=== PATIENT | male | born 1940 | race Two or more races ===

== ENCOUNTER 2018-12-15 19:04 | Inpatient (IN) | payer MEDICARE, MEDICAID ==
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
[2018-12-15 21:26] LABS: % BASOPHILS 0.8 % (0.0-2.0); % EOSINOPHILS 3.7 % (0.0-5.0); % LYMPHOCYTES 30.7 % (20.0-50.0); % NEUTROPHILS 52.8 % (40.0-80.0); BASOPHILE ABSOLUTE 0.1 Th/cumm (0-0.2); EOSINOPHILE ABSOLUTE 0.3 Th/cmm (0.1-0.4); HEMATOCRIT 38.9 % (41.0-60); HEMOGLOBIN 13.4 gm/dL (12-16); LYMPHOCYTE ABSOLUTE 2.5 Th/cmm (1.5-3.0); MEAN CELL VOLUME 82.4 fl (80-99); MEAN CORPUSCULAR HEMOGLOBIN 28.3 pg (27.0-31.0); MEAN CORPUSCULAR HGB CONC 34.4 pg (28.0-36.0); NEUTROPHILE ABSOLUTE 4.1 Th/cmm (1.8-8.0); PLATELET COUNT 310 Th/cmm (150-400); RED BLOOD COUNT 4.72 Mil/cmm (3.80-5.80); RED CELL DISTRIBUTION WIDTH 12.1 % (11.5-20.0)
[2018-12-15 21:41] LABS: ALB/GLOB RATIO 1.4 (1.0-1.8); ALBUMIN 3.7 gm/dL (4.2-5.5); ALKALINE PHOSPHATASE 61 U/L (34-104); ANION GAP 14.2 (7.0-16.0); BILIRUBIN,TOTAL 0.5 mg/dL (0.3-1.0); BUN - UREA NITROGEN 17 mg/dL (7-25); CALCIUM SERUM 9.5 mg/dL (8.6-10.3); CARBON DIOXIDE 25.6 mEq/L (21.0-31.0); CHLORIDE 101 mEq/L (98-107); CHOLESTEROL 140 mg/dL (<200); CREATININE - SERUM 0.9 mg/dL (0.7-1.3); GLUCOSE 187 mg/dL (70-105); HDL -HIGH DENSITY LIPOPROTEIN 32 mg/dL (23-92); POTASSIUM SERUM 3.8 mEq/L (3.5-5.1); SGOT 10 U/L (13-39); SGPT/ALT 10 U/L (7-52); SODIUM SERUM 137 mEq/L (136-145); TOTAL PROTEIN,SERUM 6.3 gm/dL (6.0-8.3); TRIGLYCERIDES 215 mg/dL (<150)
[2018-12-15 23:59] VITALS: BP 121/56
[2018-12-16] MEDS ORDERED: Magnesium Hydroxide (MOM) 30 mL UDC PO PRN (12:24)
[2018-12-16] MEDS ORDERED: GLUCAGON HCl 1 MG KIT IM PRN (12:25)
[2018-12-16] MEDS ORDERED: Dextrose 50% 50 mL Abboject IVP PRN (12:25)
--- NOTE | 2018-12-16 16:05 | History & Physical ---
ADMIT DATE: 12/16/2018 INTERNAL MEDICINE HISTORY AND PHYSICAL REASON FOR CONSULTATION: Medical management and clearance. The patient was admitted to inpatient unit. HISTORY OF PRESENT ILLNESS: This is a 78-year-old middle aged male with a history of hypertension, diabetes, GERD, BPH, paroxysmal atrial fibrillation, Alzheimer dementia, high cholesterol, admitted from nursing facility secondary to agitated behavior under Dr. Suggs. The patient is not a good historian, confused, unable to provide any meaningful history and review of systems. PAST MEDICAL HISTORY: As mentioned in the history of present illness. PAST SURGICAL HISTORY: Unable to obtain with the patient. ALLERGIES: LEVAQUIN. MEDICATIONS: Tylenol, diltiazem, Lasix, Olmesartan, losartan, Ativan, potassium, Seroquel, ____, tamsulosin. FAMILY HISTORY: Noncontributory. SOCIAL HISTORY: The patient is a halfway patient requiring 24-hour total care. REVIEW OF SYSTEMS: This is limited secondary to pain, comatose state. We will try to obtain more detailed review of system at a later date by talking to other family members in ____ also try to get information from nursing facility, as well as from Dr. Suggs. PHYSICAL EXAMINATION: VITAL SIGNS: Blood pressure 148/67, respirations 20, pulse 54, and temperature 97.8. GENERAL: Elderly male, morbidly obese. NECK: Supple. No mass. LUNGS: Equal breath sounds, otherwise clear to auscultation. HEART: Irregularly regular with systolic ejection murmur. ABDOMEN: Soft, globular. EXTREMITIES: Positive excoriations. NEUROLOGIC: Limited. LABORATORY DATA: WBC 8, hemoglobin 13, platelets 310. Sodium 137, potassium 3.8, BUN 70, creatinine 0.9, blood sugar 187, AST and ALT 10 and 10, and triglyceride 250. ASSESSMENT AND PLAN: Anemia, diabetes, hypertension, gastroesophageal reflux disease, benign prostatic hypertrophy, paroxysmal atrial fibrillation, Alzheimer dementia, and hyperglycemia. Continue the patient on ADA diet and insulin sliding scale. Continue metformin. Continue current antihypertensive medication. We will place him on fall precautions. Continue with current care. We will continue to follow with the patient with youDr. Suggs. JOB# [id number]
[2018-12-16] MEDS: INSULIN LISPRO SLIDING SCALE 100 UNITS/ML UNIT SUBQ SCH ×2 (17:15→21:06)
[2018-12-16] MEDS ORDERED: Non-Formulary Item 1 EA (Melatonin [Melatonin] 10 MG) PO SCH (21:00)
[2018-12-16] MEDS: Atorvastatin Calcium 10 MG TAB PO SCH (21:05)
--- NOTE | 2018-12-17 00:50 | Psychiatric Evaluation ---
DATE OF SERVICE: 12/15/2018 CHIEF COMPLAINT: "I am fine." HISTORY OF PRESENT ILLNESS: The patient is a 78-year-old male with a history of dementia and psychosis, was sent from his custodial from [facility] for increased agitation, anger outburst, striking out at staff and others. The patient was interviewed today. The patient is a poor historian, forgetful and disorganized. PAST PSYCHIATRIC HISTORY: Dementia and psychosis. PAST MEDICAL HISTORY: As per H and P. Medical record was reviewed from [facility]. The patient with history of dementia and repeated falls. The patient with hypertension, BPH and diabetes. PSYCHOSOCIAL HISTORY: The patient resides at [facility], requires complete care. SUBSTANCE ABUSE HISTORY: Denied. MENTAL STATUS EXAMINATION: Speech, short sentences; occasional delayed responses. The patient appears to be paranoid, suspicious with surroundings. Memory, calculation, fund of knowledge is impaired. The patient thought he was 82 years old. Did not know where he was, but he is oriented to person. The patient's strength: The patient is accepting treatment. The patient's weakness: Lack of insight. ASSESSMENT: Psychosis, not otherwise specified; rule out major depressive disorder with psychosis; dementia; Alzheimer's type with behavior disturbances. MEDICAL: As per medical history. PLAN: We will admit the patient for hospitalization. We will start individual and group therapy, assess psychopharmacological intervention. ESTIMATED LENGTH OF STAY: 7 days. CRITERIA FOR DISCHARGE: Improved condition. Further stabilization, less anxiety. No aggressive behavior and safe disposition, outpatient treatment plan. [facility]# [id number]
[2018-12-17 06:04] LABS: A1C 7.5 % (4.8-5.6)
[2018-12-17] MEDS: INSULIN LISPRO SLIDING SCALE 100 UNITS/ML UNIT SUBQ SCH ×4 (06:34→21:25)
[2018-12-17] MEDS: Diltiazem CD 120 mg 24H PO SCH (08:28)
[2018-12-17] MEDS: Aspirin 81mg Chewable Tab PO SCH (08:29)
[2018-12-17] MEDS: Multivitamin Tab PO SCH (08:29)
[2018-12-17] MEDS: Potassium Chloride 10 mEq ER Tab PO SCH (08:30)
--- NOTE | 2018-12-17 11:56 | Internal Medicine Prog Note ---
Internal Medicine Subjective - Subjective Service Date: 12/17/18 Patient seen and examined:: with staff Patient is:: awake, verbal Per staff patient has:: tolerating meds Internal Medicine Objective - Results Result Diagrams: 12/15/18 21:00 12/15/18 21:00 Recent Labs: Laboratory Last Values WBC 8.0 Th/cmm (4.8-10.8) 12/15/18 21:00 RBC 4.72 Mil/cmm (3.80-5.80) 12/15/18 21:00 Hgb 13.4 gm/dL (12-16) 12/15/18 21:00 Hct 38.9 % (41.0-60) L 12/15/18 21:00 MCV 82.4 fl (80-99) 12/15/18 21:00 MCH 28.3 pg (27.0-31.0) 12/15/18 21:00 MCHC Differential 34.4 pg (28.0-36.0) 12/15/18 21:00 RDW 12.1 % (11.5-20.0) 12/15/18 21:00 Plt Count 310 Th/cmm (150-400) 12/15/18 21:00 MPV 7.5 fl 12/15/18 21:00 Neutrophils % 52.8 % (40.0-80.0) 12/15/18 21:00 Lymphocytes % 30.7 % (20.0-50.0) 12/15/18 21:00 Monocytes % 12.0 % (2.0-10.0) H 12/15/18 21:00 Eosinophils % 3.7 % (0.0-5.0) 12/15/18 21:00 Basophils % 0.8 % (0.0-2.0) 12/15/18 21:00 Sodium 137 mEq/L (136-145) 12/15/18 21:00 Potassium 3.8 mEq/L (3.5-5.1) 12/15/18 21:00 Chloride 101 mEq/L (98-107) 12/15/18 21:00 Carbon Dioxide 25.6 mEq/L (21.0-31.0) 12/15/18 21:00 Anion Gap 14.2 (7.0-16.0) 12/15/18 21:00 BUN 17 mg/dL (7-25) 12/15/18 21:00 Creatinine 0.9 mg/dL (0.7-1.3) 12/15/18 21:00 Est GFR ( Amer) TNP 12/15/18 21:00 Est GFR (Non-Af Amer) TNP 12/15/18 21:00 BUN/Creatinine Ratio 18.9 12/15/18 21:00 Glucose 187 mg/dL (70-105) H 12/15/18 21:00 Calcium 9.5 mg/dL (8.6-10.3) 12/15/18 21:00 Total Bilirubin 0.5 mg/dL (0.3-1.0) 12/15/18 21:00 AST 10 U/L (13-39) L 12/15/18 21:00 ALT 10 U/L (7-52) 12/15/18 21:00 Alkaline Phosphatase 61 U/L (34-104) 12/15/18 21:00 Troponin I 0.01 ng/mL (0.01-0.05) 12/15/18 21:00 Total Protein 6.3 gm/dL (6.0-8.3) 12/15/18 21:00 Albumin 3.7 gm/dL (4.2-5.5) L 12/15/18 21:00 Globulin 2.6 gm/dL 12/15/18 21:00 Albumin/Globulin Ratio 1.4 (1.0-1.8) 12/15/18 21:00 Triglycerides 215 mg/dL (<150) H 12/15/18 21:00 Cholesterol 140 mg/dL (<200) 12/15/18 21:00 LDL Cholesterol Direct 92 mg/dL (75-193) 12/15/18 21:00 HDL Cholesterol 32 mg/dL (23-92) 12/15/18 21:00 TSH 3.45 uIU/ml (0.34-5.60) 12/15/18 21:00 - Physical Exam Vitals and I&O: Vital Signs Temp 97.4 F 12/17/18 08:00 Pulse 60 12/17/18 08:28 Resp 18 12/17/18 08:00 BP 135/63 12/17/18 08:29 Pulse Ox 94 12/17/18 08:00 Intake & Output 12/16/18 12/17/18 12/17/18 18:59 06:59 18:59 Intake Total 1200 240 Balance 1200 240 Intake: Oral 1200 240 Other: # Voids 2 # Bowel Movements 1 Active Medications: Current Medications Acetaminophen (Tylenol) 650 mg PO Q6HR PRN PRN Reason: Pain or Fever >101 Stop: 02/14/19 12:23 Aspirin (Aspirin Chewable) 81 mg PO DAILY MARIANA Stop: 02/15/19 08:59 Last Admin: 12/17/18 08:29 Dose: 81 mg Atorvastatin Calcium (Lipitor) 10 mg PO HS MARIANA; Protocol Stop: 02/14/19 20:59 Last Admin: 12/16/18 21:05 Dose: 10 mg Bisacodyl (Dulcolax 10 Mg Supp) 10 mg RC DAILY PRN PRN Reason: Constipation Stop: 02/14/19 12:23 Dextrose (D50w) 50 ml IVP PRN PRN PRN Reason: Blood Glucose less than 70 Stop: 02/14/19 12:24 Dextrose (Glutose 40%) 18.75 gm PO PRN PRN PRN Reason: Blood Glucose less than 70 Stop: 02/14/19 12:24 Diltiazem HCl (Cardizem Cd) 240 mg PO DAILY MARIANA Stop: 02/15/19 08:59 Last Admin: 12/17/18 08:28 Dose: 240 mg Furosemide (Lasix) 20 mg PO BID MARIANA Stop: 02/14/19 16:59 Last Admin: 12/17/18 08:29 Dose: 20 mg Glucagon (Glucagen) 1 mg IM PRN PRN PRN Reason: Blood Glucose less than 70 Stop: 02/14/19 12:24 Insulin Human Lispro (Humalog Insulin Sliding Scale) 0 units SUBQ ACHS MARIANA; Protocol Stop: 02/14/19 16:29 Last Admin: 12/17/18 06:34 Dose: Not Given Lorazepam (Ativan) 0.5 mg PO Q4H PRN; Protocol PRN Reason: Anxiety Stop: 02/14/19 00:10 Last Admin: 12/16/18 17:16 Dose: 0.5 mg Losartan Potassium (Cozaar) 25 mg PO DAILY [facility] Stop: 02/15/19 08:59 Last Admin: 12/17/18 08:27 Dose: 25 mg Magnesium Hydroxide (Milk Of Magnesia) 30 ml PO DAILY PRN PRN Reason: Constipation Stop: 02/14/19 12:23 Metformin HCl (Glucophage) 500 mg PO BIDWM [facility] Stop: 02/14/19 17:59 Last Admin: 12/17/18 08:29 Dose: 500 mg Multivitamins/Vitamin C (Theragran) 1 tab PO DAILY [facility] Stop: 02/15/19 08:59 Last Admin: 12/17/18 08:29 Dose: 1 tab Potassium Chloride (Klor-Con) 10 meq PO DAILY [facility] Stop: 02/15/19 08:59 Last Admin: 12/17/18 08:30 Dose: 10 meq Quetiapine Fumarate (Seroquel) 25 mg PO BID [facility]; Protocol Stop: 02/14/19 08:59 Last Admin: 12/17/18 08:27 Dose: 25 mg Rivastigmine Tartrate (Exelon) 1.5 mg PO BIDWM [facility] Stop: 02/14/19 17:59 Last Admin: 12/17/18 08:27 Dose: 1.5 mg Tamsulosin HCl (Flomax) 0.4 mg PO DAILY [facility] Stop: 02/15/19 08:59 Last Admin: 12/17/18 08:29 Dose: 0.4 mg General: alert HEENT: NC/AT, PERRLA Neck: Supple Lungs: CTAB Cardiovascular: RRR, Normal S1, Normal S2 Abdomen: soft, non-tender, non-distended, positive bowel sound Extremities: excoriation Neurological: alert Internal Medicine Assmt/Plan - Assessment Assessment: anemia dm2 htn gerd bph paroxysmal afib alzheimer dementia - Plan Plan: continue ada diet fall precautions continue current plan of care Nutritional Asmnt/Malnutr-PDOC - Dietary Evaluation Malnutrition Findings (Please click <Entered> for more info): Nutritional Asmnt/Malnutrition Start: 12/16/18 08: 21 Text: Status: Active Freq: Protocol: Document 12/17/18 10:01 ELLE (Rec: 12/17/18 10:22 ELLE ARANDA- [email or web address]) Nutritional Asmnt/Malnutrition Patient General Information Nutritional Screening Moderate Risk Diagnosis Psychosis Pertinent Medical Hx/Surgical Hx HTN, Diabetes, GERD, BPH, paroxysomal atrial fibrillation, Alzheimer dementia, high cholesterol Subjective Information Patient was admitted from nursing facility for agitation . Patient with 1-2+ edema, on lasix. Per nursing notes, patient easily agitated, aggressive and unpredictable, sometimes striking, hitting and spitting. Current Diet Order/ Nutrition Support mechanical soft, 45gm CCHO, nectar thick liquids, chopped, no added sodium Patient / S.O Not Indicated Pertinent Medications Lipitor, dulcolax, D50W, Lasix , glucagon, humalog, cozaar, MOM, Metformin, Theragran, klor-con Pertinent Labs (12/15) Glucose 187, Albumin 3. 7, TAG 215 Nutritional Hx/Data Height 5 ft 7 in Height (Calculated Centimeters) 170.2 Current Weight (lbs) 185 lb Weight (Calculated Kilograms) 83.9 Weight (Calculated Grams) 20207.6 [place] Body Weight 148 % [place] Body Weight 125 Body Mass Index (BMI) 29.0 Recent Weight Change No Weight Status Overweight GI Symptoms GI Symptoms None Last BM 12/16 x 1 Difficult in: None Food Allergies No Cultural/Ethnic/Episcopal Belief none indicated Usual diet at home unknown Skin Integrity/Comment: Moses 16, bruises, intact Current %PO Good (75-100%) Estimated Nutritional Goals BEE in Kcals: Using Current wt Calories/Kcals/Kg 84kg 22-27 kcal/kg Kcals Calculated ~1125-1570 kcal/day Protein: Using Current wt Protein g/k.8-1 gm/kg Protein Calculated ~65-85 gm/day Fluid: ml ~1614-7897 ml/day Nutritional Problem No current Nutrition Prob Problem No nutrition diagnosis at this time Intervention/Recommendation Comments 1. Modify diet to 60 gm CCHO to better meet nutrient needs. Continue No added sodium due to edema. Continue mechanical soft, chopped diet with nectar thick liquids as appropriate. Expected Outcomes/Goals Expected Outcomes/Goals Adequate nutrition to meet >75 % estimated needs, improved labs, skin remains intact, weight maintenance or trend toward ideal body weight. F/U LR 12/24
--- NOTE | 2018-12-17 19:48 | Progress Notes ---
DATE: 12/17/2018 CHIEF COMPLAINT: "They keep me here." SUBJECTIVE: The patient was seen, remains anxious, still irritable, episodes of refusing care, refusing medications. 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 MENTAL STATUS EXAM: Speech is loud at times. Affect is dysphoric. The patient remains paranoid. Still responding to internal stimuli. Insight is still limited. ASSESSMENT: The patient is still agitated and forgetful. PLAN: Continue hospitalization, stabilization. Encourage the patient to comply with treatment. Continue current dose of Seroquel. JOB# [id number]
[2018-12-17] MEDS: Atorvastatin Calcium 10 MG TAB PO SCH (21:04)
[2018-12-18] MEDS: INSULIN LISPRO SLIDING SCALE 100 UNITS/ML UNIT SUBQ SCH ×4 (06:40→21:39)
[2018-12-18] MEDS: Aspirin 81mg Chewable Tab PO SCH (09:00)
[2018-12-18] MEDS: Potassium Chloride 10 mEq ER Tab PO SCH (09:00)
[2018-12-18] MEDS: Multivitamin Tab PO SCH (09:00)
[2018-12-18] MEDS: Diltiazem CD 120 mg 24H PO SCH (11:04)
--- NOTE | 2018-12-18 13:23 | Internal Medicine Prog Note ---
Internal Medicine Subjective - Subjective Service Date: 12/18/18 Patient is:: awake, verbal Per staff patient has:: tolerating meds Internal Medicine Objective - Results Result Diagrams: 12/15/18 21:00 12/15/18 21:00 Recent Labs: Laboratory Last Values WBC 8.0 Th/cmm (4.8-10.8) 12/15/18 21:00 RBC 4.72 Mil/cmm (3.80-5.80) 12/15/18 21:00 Hgb 13.4 gm/dL (12-16) 12/15/18 21:00 Hct 38.9 % (41.0-60) L 12/15/18 21:00 MCV 82.4 fl (80-99) 12/15/18 21:00 MCH 28.3 pg (27.0-31.0) 12/15/18 21:00 MCHC Differential 34.4 pg (28.0-36.0) 12/15/18 21:00 RDW 12.1 % (11.5-20.0) 12/15/18 21:00 Plt Count 310 Th/cmm (150-400) 12/15/18 21:00 MPV 7.5 fl 12/15/18 21:00 Neutrophils % 52.8 % (40.0-80.0) 12/15/18 21:00 Lymphocytes % 30.7 % (20.0-50.0) 12/15/18 21:00 Monocytes % 12.0 % (2.0-10.0) H 12/15/18 21:00 Eosinophils % 3.7 % (0.0-5.0) 12/15/18 21:00 Basophils % 0.8 % (0.0-2.0) 12/15/18 21:00 Sodium 137 mEq/L (136-145) 12/15/18 21:00 Potassium 3.8 mEq/L (3.5-5.1) 12/15/18 21:00 Chloride 101 mEq/L (98-107) 12/15/18 21:00 Carbon Dioxide 25.6 mEq/L (21.0-31.0) 12/15/18 21:00 Anion Gap 14.2 (7.0-16.0) 12/15/18 21:00 BUN 17 mg/dL (7-25) 12/15/18 21:00 Creatinine 0.9 mg/dL (0.7-1.3) 12/15/18 21:00 Est GFR ( Amer) TNP 12/15/18 21:00 Est GFR (Non-Af Amer) TNP 12/15/18 21:00 BUN/Creatinine Ratio 18.9 12/15/18 21:00 Glucose 187 mg/dL (70-105) H 12/15/18 21:00 Calcium 9.5 mg/dL (8.6-10.3) 12/15/18 21:00 Total Bilirubin 0.5 mg/dL (0.3-1.0) 12/15/18 21:00 AST 10 U/L (13-39) L 12/15/18 21:00 ALT 10 U/L (7-52) 12/15/18 21:00 Alkaline Phosphatase 61 U/L (34-104) 12/15/18 21:00 Troponin I 0.01 ng/mL (0.01-0.05) 12/15/18 21:00 Total Protein 6.3 gm/dL (6.0-8.3) 12/15/18 21:00 Albumin 3.7 gm/dL (4.2-5.5) L 12/15/18 21:00 Globulin 2.6 gm/dL 12/15/18 21:00 Albumin/Globulin Ratio 1.4 (1.0-1.8) 12/15/18 21:00 Triglycerides 215 mg/dL (<150) H 12/15/18 21:00 Cholesterol 140 mg/dL (<200) 12/15/18 21:00 LDL Cholesterol Direct 92 mg/dL (75-193) 12/15/18 21:00 HDL Cholesterol 32 mg/dL (23-92) 12/15/18 21:00 TSH 3.45 uIU/ml (0.34-5.60) 12/15/18 21:00 - Physical Exam Vitals and I&O: Vital Signs Temp 98.1 F 12/17/18 20:00 Pulse 75 12/18/18 11:04 Resp 18 12/17/18 20:00 BP 137/70 12/18/18 10:57 Pulse Ox 96 12/17/18 20:00 Intake & Output 07/12/18/18 12/18/18 18:59 06:59 18:59 Intake Total 850 600 Balance 850 600 Intake: Oral 850 600 Other: # Voids 4 2 # Bowel Movements 0 0 Active Medications: Current Medications Acetaminophen (Tylenol) 650 mg PO Q6HR PRN PRN Reason: Pain or Fever >101 Stop: 02/14/19 12:23 Aspirin (Aspirin Chewable) 81 mg PO DAILY [facility] Stop: 02/15/19 08:59 Last Admin: 12/18/18 09:00 Dose: 81 mg Atorvastatin Calcium (Lipitor) 10 mg PO HS [facility]; Protocol Stop: 02/14/19 20:59 Last Admin: 12/17/18 21:04 Dose: 10 mg Bisacodyl (Dulcolax 10 Mg Supp) 10 mg RC DAILY PRN PRN Reason: Constipation Stop: 02/14/19 12:23 Dextrose (D50w) 50 ml IVP PRN PRN PRN Reason: Blood Glucose less than 70 Stop: 02/14/19 12:24 Dextrose (Glutose 40%) 18.75 gm PO PRN PRN PRN Reason: Blood Glucose less than 70 Stop: 02/14/19 12:24 Diltiazem HCl (Cardizem Cd) 240 mg PO DAILY [facility] Stop: 02/15/19 08:59 Last Admin: 12/18/18 11:04 Dose: 240 mg Furosemide (Lasix) 20 mg PO BID [facility] Stop: 02/14/19 16:59 Last Admin: 12/18/18 10:57 Dose: 20 mg Glucagon (Glucagen) 1 mg IM PRN PRN PRN Reason: Blood Glucose less than 70 Stop: 02/14/19 12:24 Insulin Human Lispro (Humalog Insulin Sliding Scale) 0 units SUBQ ACHS [facility]; Protocol Stop: 02/14/19 16:29 Last Admin: 12/18/18 06:40 Dose: Not Given Lorazepam (Ativan) 0.5 mg PO Q4H PRN; Protocol PRN Reason: Anxiety Stop: 02/14/19 00:10 Last Admin: 12/18/18 09:00 Dose: 0.5 mg Losartan Potassium (Cozaar) 25 mg PO DAILY [facility] Stop: 02/15/19 08:59 Last Admin: 12/18/18 09:00 Dose: 25 mg Magnesium Hydroxide (Milk Of Magnesia) 30 ml PO DAILY PRN PRN Reason: Constipation Stop: 02/14/19 12:23 Metformin HCl (Glucophage) 500 mg PO BIDWM [facility] Stop: 02/14/19 17:59 Last Admin: 12/18/18 08:00 Dose: 500 mg Multivitamins/Vitamin C (Theragran) 1 tab PO DAILY [facility] Stop: 02/15/19 08:59 Last Admin: 12/18/18 09:00 Dose: 1 tab Potassium Chloride (Klor-Con) 10 meq PO DAILY [facility] Stop: 02/15/19 08:59 Last Admin: 12/18/18 09:00 Dose: 10 meq Quetiapine Fumarate (Seroquel) 25 mg PO BID [facility]; Protocol Stop: 02/14/19 08:59 Last Admin: 12/18/18 09:00 Dose: 25 mg Rivastigmine Tartrate (Exelon) 1.5 mg PO BIDWM [facility] Stop: 02/14/19 17:59 Last Admin: 12/18/18 11:02 Dose: Not Given Tamsulosin HCl (Flomax) 0.4 mg PO DAILY [facility] Stop: 02/15/19 08:59 Last Admin: 12/18/18 09:00 Dose: 0.4 mg General: alert HEENT: NC/AT, PERRLA Neck: Supple Lungs: CTAB Cardiovascular: RRR, Normal S1, Normal S2 Abdomen: soft, non-tender, non-distended, positive bowel sound Extremities: excoriation Neurological: alert Internal Medicine Assmt/Plan - Assessment Assessment: anemia dm2 htn gerd bph paroxysmal afib alzheimer dementia - Plan Plan: continue ada diet fall precautions continue current plan of care Nutritional Asmnt/Malnutr-PDOC - Dietary Evaluation Malnutrition Findings (Please click <Entered> for more info): Nutritional Asmnt/Malnutrition Start: 12/16/18 08: 21 Text: Status: Complete Freq: Protocol: Document 12/17/18 10:01 ELLE (Rec: 12/17/18 10:22 ELLE ARANDA- [email or web address]) Nutritional Asmnt/Malnutrition Patient General Information Nutritional Screening Moderate Risk Diagnosis Psychosis Pertinent Medical Hx/Surgical Hx HTN, Diabetes, GERD, BPH, paroxysomal atrial fibrillation, Alzheimer dementia, high cholesterol Subjective Information Patient was admitted from nursing facility for agitation . Patient with 1-2+ edema, on lasix. Per nursing notes, patient easily agitated, aggressive and unpredictable, sometimes striking, hitting and spitting. Patient was seen in Radha chair in dining room at time of visit. Per GRINDING MACHINE OPERATOR, he [id number]% of meals without difficulty. Current Diet Order/ Nutrition Support mechanical soft, 45gm CCHO, nectar thick liquids, chopped, no added sodium Patient / S.O Not Indicated Pertinent Medications Lipitor, dulcolax, D50W, Lasix , glucagon, humalog, cozaar, MOM, Metformin, Theragran, klor-con Pertinent Labs (12/15) Glucose 187, Albumin 3. 7, TAG 215 Nutritional Hx/Data Height 5 ft 7 in Height (Calculated Centimeters) 170.2 Current Weight (lbs) 185 lb Weight (Calculated Kilograms) 83.9 Weight (Calculated Grams) 99985.6 [place] Body Weight 148 % [place] Body Weight 125 Body Mass Index (BMI) 29.0 Recent Weight Change No Weight Status Overweight GI Symptoms GI Symptoms None Last BM 12/16 x 1 Difficult in: None Food Allergies No Cultural/Ethnic/Presybeterian Belief none indicated Usual diet at home unknown Skin Integrity/Comment: Moses 16, bruises, intact Current %PO Good (75-100%) Estimated Nutritional Goals BEE in Kcals: Using Current wt Calories/Kcals/Kg 84kg 22-27 kcal/kg Kcals Calculated ~0468-5923 kcal/day Protein: Using Current wt Protein g/k.8-1 gm/kg Protein Calculated ~65-85 gm/day Fluid: ml ~3382-9763 ml/day Nutritional Problem No current Nutrition Prob Problem No nutrition diagnosis at this time Intervention/Recommendation Comments 1. Modify diet to 60 gm CCHO to better meet nutrient needs. Continue No added sodium due to edema. Continue mechanical soft, chopped diet with nectar thick liquids as appropriate. Expected Outcomes/Goals Expected Outcomes/Goals Adequate nutrition to meet >75 % estimated needs, improved labs, skin remains intact, weight maintenance or trend toward ideal body weight. F/U LR 12/24
--- NOTE | 2018-12-18 18:54 | Consultation ---
DATE OF CONSULTATION: 12/17/2018 REFERRING PHYSICIAN: Roberto Morris M.D. TYPE OF CONSULTATION: Psychology. HISTORY OF PRESENT ILLNESS: The patient is a 78-year-old male. The patient is a resident of [facility]. The patient is being admitted for increased agitation as well as anger outbursts and striking out at staff. The following is by record review and by the patient's self report. The patient presents as a poor historian. The patient denied any suicidal ideation, plan or intention at the time of his clinical interview. PAST MEDICAL HISTORY: Please see history and physical by Dr. Moore PAST PSYCHIATRIC HISTORY: Record review indicates a history of dementia and psychosis. It is unknown whether the patient has had previous psychiatric hospitalizations. The patient stated he is under the care of a psychiatrist at his facility. SUBSTANCE ABUSE HISTORY: The patient denied any history of alcohol, tobacco or illicit drug use. PSYCHOSOCIAL HISTORY: The patient states that he is and that he has 1 son who is involved in his care. The patient states his primary sikh is Mu-Ism and that he is devout. The patient did not answer questions about occupational or educational history. The patient did not answer questions about history of physical or sexual abuse or any current legal problems. MENTAL STATUS EXAMINATION: The patient appears to be his stated age. The patient's attitude is guarded and suspicious. Eye contact is poor. Speech is slow and delayed. Mood seems anxious. Affect is mood congruent. Thought process shows some confusion with poor fund of knowledge. The patient denied any hallucinations or delusions. The patient denies any suicidal ideation, plan or intention. There is possible paranoid ideation. The patient's behavior has been redirectable on the unit. The patient is denying aggressive behavior. Impulse control is inadequate. Concentration is poor. Sensorium is alert and oriented to self only. The patient did not participate in the memory assessment. When asked to repeat 3 items immediately, the patient was unable to do so. The patient did not participate in the interpretation of proverbs. Insight is poor. Judgment is impaired. DIAGNOSTIC IMPRESSION: AXIS I: 1. Psychotic disorder, not otherwise specified. 2. History of dementia, Alzheimer's type with behavioral disturbance. AXIS II: Deferred. AXIS III: Per Dr. Moore. TREATMENT PLAN: The patient has been seen by Dr. Morris for psychiatric evaluation and for the management of the patient's psychotropic medications. We will provide individual, supportive psychotherapy to include reality orientation, differentiation and integration. We will provide motivational enhancement for the patient to become compliant and stay compliant with all aspects of his care and treatment. We will provide limit setting as well as de-escalation. We will encourage the patient to demonstrate emotional and self-regulation by verbalizing his concerns versus acting out. We will provide simple anger management skills. We will provide coping strategies for phase of life issues. We will encourage the patient on a daily basis to verbally contract for safety, i.e. no harm to others and no self-harm. Thank you, Dr. Morris for this consult and the opportunity to participate in this patient's care. [facility]# [id number] JASPREET
[2018-12-18] MEDS: Atorvastatin Calcium 10 MG TAB PO SCH (20:37)
[2018-12-19] MEDS: INSULIN LISPRO SLIDING SCALE 100 UNITS/ML UNIT SUBQ SCH ×4 (07:00→20:44)
[2018-12-19] MEDS: Aspirin 81mg Chewable Tab PO SCH (08:58)
[2018-12-19] MEDS: Potassium Chloride 10 mEq ER Tab PO SCH (08:58)
[2018-12-19] MEDS: Multivitamin Tab PO SCH (08:59)
[2018-12-19] MEDS: Diltiazem CD 120 mg 24H PO SCH (09:00)
--- NOTE | 2018-12-19 12:08 | Internal Medicine Prog Note ---
Internal Medicine Subjective - Subjective Patient seen and examined:: with staff, chart reviewed Patient is:: awake, verbal, interactive Per staff patient has:: no adverse event, no episodes of fall, poor appetite, tolerating meds Internal Medicine Objective - Results Result Diagrams: 12/15/18 21:00 12/15/18 21:00 Recent Labs: Laboratory Last Values WBC 8.0 Th/cmm (4.8-10.8) 12/15/18 21:00 RBC 4.72 Mil/cmm (3.80-5.80) 12/15/18 21:00 Hgb 13.4 gm/dL (12-16) 12/15/18 21:00 Hct 38.9 % (41.0-60) L 12/15/18 21:00 MCV 82.4 fl (80-99) 12/15/18 21:00 MCH 28.3 pg (27.0-31.0) 12/15/18 21:00 MCHC Differential 34.4 pg (28.0-36.0) 12/15/18 21:00 RDW 12.1 % (11.5-20.0) 12/15/18 21:00 Plt Count 310 Th/cmm (150-400) 12/15/18 21:00 MPV 7.5 fl 12/15/18 21:00 Neutrophils % 52.8 % (40.0-80.0) 12/15/18 21:00 Lymphocytes % 30.7 % (20.0-50.0) 12/15/18 21:00 Monocytes % 12.0 % (2.0-10.0) H 12/15/18 21:00 Eosinophils % 3.7 % (0.0-5.0) 12/15/18 21:00 Basophils % 0.8 % (0.0-2.0) 12/15/18 21:00 Sodium 137 mEq/L (136-145) 12/15/18 21:00 Potassium 3.8 mEq/L (3.5-5.1) 12/15/18 21:00 Chloride 101 mEq/L (98-107) 12/15/18 21:00 Carbon Dioxide 25.6 mEq/L (21.0-31.0) 12/15/18 21:00 Anion Gap 14.2 (7.0-16.0) 12/15/18 21:00 BUN 17 mg/dL (7-25) 12/15/18 21:00 Creatinine 0.9 mg/dL (0.7-1.3) 12/15/18 21:00 Est GFR ( Amer) TNP 12/15/18 21:00 Est GFR (Non-Af Amer) TNP 12/15/18 21:00 BUN/Creatinine Ratio 18.9 12/15/18 21:00 Glucose 187 mg/dL (70-105) H 12/15/18 21:00 Calcium 9.5 mg/dL (8.6-10.3) 12/15/18 21:00 Total Bilirubin 0.5 mg/dL (0.3-1.0) 12/15/18 21:00 AST 10 U/L (13-39) L 12/15/18 21:00 ALT 10 U/L (7-52) 12/15/18 21:00 Alkaline Phosphatase 61 U/L (34-104) 12/15/18 21:00 Troponin I 0.01 ng/mL (0.01-0.05) 12/15/18 21:00 Total Protein 6.3 gm/dL (6.0-8.3) 12/15/18 21:00 Albumin 3.7 gm/dL (4.2-5.5) L 12/15/18 21:00 Globulin 2.6 gm/dL 12/15/18 21:00 Albumin/Globulin Ratio 1.4 (1.0-1.8) 12/15/18 21:00 Triglycerides 215 mg/dL (<150) H 12/15/18 21:00 Cholesterol 140 mg/dL (<200) 12/15/18 21:00 LDL Cholesterol Direct 92 mg/dL (75-193) 12/15/18 21:00 HDL Cholesterol 32 mg/dL (23-92) 12/15/18 21:00 TSH 3.45 uIU/ml (0.34-5.60) 12/15/18 21:00 - Physical Exam Vitals and I&O: Vital Signs Temp 97.2 F 12/19/18 05:54 Pulse 83 12/19/18 09:00 Resp 18 12/19/18 05:54 BP 162/66 12/19/18 08:59 Pulse Ox 97 12/19/18 05:54 Intake & Output 12/18/18 12/19/18 12/19/18 18:59 06:59 18:59 Intake Total 980 240 Balance 980 240 Intake: Oral 740 240 Other 240 Other: # Voids 3 2 # Bowel Movements 1 Active Medications: Current Medications Acetaminophen (Tylenol) 650 mg PO Q6HR PRN PRN Reason: Pain or Fever >101 Stop: 02/14/19 12:23 Aspirin (Aspirin Chewable) 81 mg PO DAILY [facility] Stop: 02/15/19 08:59 Last Admin: 12/19/18 08:58 Dose: Not Given Atorvastatin Calcium (Lipitor) 10 mg PO HS [facility]; Protocol Stop: 02/14/19 20:59 Last Admin: 12/18/18 20:37 Dose: 10 mg Bisacodyl (Dulcolax 10 Mg Supp) 10 mg RC DAILY PRN PRN Reason: Constipation Stop: 02/14/19 12:23 Dextrose (Glutose 40%) 18.75 gm PO PRN PRN PRN Reason: BS Below 70 & tolerate po Stop: 02/14/19 12:24 Diltiazem HCl (Cardizem Cd) 240 mg PO DAILY [facility] Stop: 02/15/19 08:59 Last Admin: 12/19/18 09:00 Dose: 240 mg Furosemide (Lasix) 20 mg PO BID [facility] Stop: 02/14/19 16:59 Last Admin: 12/19/18 08:59 Dose: 20 mg Glucagon (Glucagen) 1 mg IM PRN PRN PRN Reason: BS Below 70 & not tolerate po Stop: 02/14/19 12:24 Insulin Human Lispro (Humalog Insulin Sliding Scale) 0 units SUBQ ACHS [facility]; Protocol Stop: 02/14/19 16:29 Last Admin: 12/19/18 07:00 Dose: 2 units Lorazepam (Ativan) 0.5 mg PO Q4H PRN; Protocol PRN Reason: Anxiety Stop: 02/14/19 00:10 Last Admin: 12/18/18 09:00 Dose: 0.5 mg Losartan Potassium (Cozaar) 25 mg PO DAILY [facility] Stop: 02/15/19 08:59 Last Admin: 12/19/18 08:59 Dose: 25 mg Magnesium Hydroxide (Milk Of Magnesia) 30 ml PO DAILY PRN PRN Reason: Constipation Stop: 02/14/19 12:23 Metformin HCl (Glucophage) 500 mg PO BIDWM [facility] Stop: 02/14/19 17:59 Last Admin: 12/19/18 09:00 Dose: 500 mg Multivitamins/Vitamin C (Theragran) 1 tab PO DAILY [facility] Stop: 02/15/19 08:59 Last Admin: 12/19/18 08:59 Dose: 1 tab Potassium Chloride (Klor-Con) 10 meq PO DAILY [facility] Stop: 02/15/19 08:59 Last Admin: 12/19/18 08:58 Dose: 10 meq Quetiapine Fumarate (Seroquel) 25 mg PO BID [facility]; Protocol Stop: 02/14/19 08:59 Last Admin: 12/19/18 09:00 Dose: 25 mg Rivastigmine Tartrate (Exelon) 1.5 mg PO BIDWM [facility] Stop: 02/14/19 17:59 Last Admin: 12/19/18 08:58 Dose: 1.5 mg Tamsulosin HCl (Flomax) 0.4 mg PO DAILY [facility] Stop: 02/15/19 08:59 Last Admin: 12/19/18 08:58 Dose: 0.4 mg General: alert, obese HEENT: NC/AT, PERRLA Neck: Supple Lungs: CTAB Cardiovascular: RRR, Normal S1, Normal S2 Abdomen: soft, non-tender, non-distended, positive bowel sound Extremities: excoriation, contracture Neurological: disorganized Internal Medicine Assmt/Plan - Assessment Assessment: ASSESSMENT AND PLAN: Anemia, diabetes, hypertension, gastroesophageal reflux disease, benign prostatic hypertrophy, paroxysmal atrial fibrillation, Alzheimer dementia, and hyperglycemia. - Plan Plan: PLAN: Continue the patient on ADA diet and insulin sliding scale. Continue metformin. Continue current antihypertensive medication. We will place him on fall precautions. Continue with current care. We will continue to follow with the patient with youDr. Suggs. Nutritional Asmnt/Malnutr-PDOC - Dietary Evaluation Malnutrition Findings (Please click <Entered> for more info): Nutritional Asmnt/Malnutrition Start: 12/16/18 08: 21 Text: Status: Complete Freq: Protocol: Document 12/17/18 10:01 ELLE (Rec: 12/17/18 10:22 ELLE ARANDA- [email or web address]) Nutritional Asmnt/Malnutrition Patient General Information Nutritional Screening Moderate Risk Diagnosis Psychosis Pertinent Medical Hx/Surgical Hx HTN, Diabetes, GERD, BPH, paroxysomal atrial fibrillation, Alzheimer dementia, high cholesterol Subjective Information Patient was admitted from nursing facility for agitation . Patient with 1-2+ edema, on lasix. Per nursing notes, patient easily agitated, aggressive and unpredictable, sometimes striking, hitting and spitting. Patient was seen in Radha chair in dining room at time of visit. Per DRESSING ROOM PORTER, he [id number]% of meals without difficulty. Current Diet Order/ Nutrition Support mechanical soft, 45gm CCHO, nectar thick liquids, chopped, no added sodium Patient / S.O Not Indicated Pertinent Medications Lipitor, dulcolax, D50W, Lasix , glucagon, humalog, cozaar, MOM, Metformin, Theragran, klor-con Pertinent Labs (12/15) Glucose 187, Albumin 3. 7, TAG 215 Nutritional Hx/Data Height 1.7 m Height (Calculated Centimeters) 170.2 Current Weight (lbs) 83.915 kg Weight (Calculated Kilograms) 83.9 Weight (Calculated Grams) 52792.6 [place] Body Weight 148 % [place] Body Weight 125 Body Mass Index (BMI) 29.0 Recent Weight Change No Weight Status Overweight GI Symptoms GI Symptoms None Last BM 12/16 x 1 Difficult in: None Food Allergies No Cultural/Ethnic/Anabaptism Belief none indicated Usual diet at home unknown Skin Integrity/Comment: Moses 16, bruises, intact Current %PO Good (75-100%) Estimated Nutritional Goals BEE in Kcals: Using Current wt Calories/Kcals/Kg 84kg 22-27 kcal/kg Kcals Calculated ~4303-0075 kcal/day Protein: Using Current wt Protein g/k.8-1 gm/kg Protein Calculated ~65-85 gm/day Fluid: ml ~6542-9086 ml/day Nutritional Problem No current Nutrition Prob Problem No nutrition diagnosis at this time Intervention/Recommendation Comments 1. Modify diet to 60 gm CCHO to better meet nutrient needs. Continue No added sodium due to edema. Continue mechanical soft, chopped diet with nectar thick liquids as appropriate. Expected Outcomes/Goals Expected Outcomes/Goals Adequate nutrition to meet >75 % estimated needs, improved labs, skin remains intact, weight maintenance or trend toward ideal body weight. F/U LR 12/24
--- NOTE | 2018-12-19 12:17 | Progress Notes ---
DATE: 12/18/2018 SUBJECTIVE: The patient was seen. Continues to have episode of anger, irritability, some episodes of refusing care. The patient is however sleeping fairly well and appetite is fair. P.o. intake is fair. ASSESSMENT: The patient is still anxious, confused and paranoid. PLAN: Continue hospitalization and encourage the patient to comply with treatment. The patient on Seroquel 25 mg p.o. b.i.d. JOB# [id number]
[2018-12-19] MEDS: Atorvastatin Calcium 10 MG TAB PO SCH (20:15)
--- NOTE | 2018-12-19 23:23 | Progress Notes ---
DATE: 12/19/2018 PSYCHOLOGY PROGRESS NOTE SUBJECTIVE: The patient is seen and is interviewed. Case is discussed with staff. Staff reports the patient continues to have anger episodes and is easily irritated. The staff reports the patient has been refusing care. The patient seems quite confused and disoriented this visit. OBJECTIVE: Mood is irritable. Affect is constricted. Thought process shows to be confused. The patient denied any auditory or visual hallucinations; however, paranoid delusion is present. The patient's behavior has been difficult to redirect as well as refusing care. ASSESSMENT AND PLAN: The patient's confusion and paranoia and anxiety persist. We provided a simple anxiety reduction scale. We provided de-escalation and encouraged the patient to demonstrate emotional and self-regulation by verbalizing his concerns versus acting out. We provided remotivation for the patient to become compliant with his care and treatment. We provided coping strategies for phase of life issues as well. We provided reality orientation and integration. We will follow up in 2 days to continue the present treatment if the patient remains admitted on the unit. JOB# [id number] JASPREET
--- NOTE | 2018-12-20 03:10 | Progress Notes ---
DATE: 12/19/2018 SUBJECTIVE: Staff was spoken to. The patient is interviewed. Mood is noted to be irritable. Affect is constricted. The patient has paranoia, but denies any command hallucinations. The patient has been having difficult time to get adjusted to the unit and has been getting easily irritable and angry. The patient is going to be continued on the Seroquel that is being given at 25 mg twice a day and is going to be followed up with the supportive therapy. ASSESSMENT: The patient is still psychotic and impulsive. PLAN: To continue the patient with the supportive therapy and followup. JOB# [id number]
[2018-12-20] MEDS: INSULIN LISPRO SLIDING SCALE 100 UNITS/ML UNIT SUBQ SCH ×4 (07:00→20:56)
[2018-12-20] MEDS: Diltiazem CD 120 mg 24H PO SCH (09:01)
[2018-12-20] MEDS: Aspirin 81mg Chewable Tab PO SCH (09:02)
[2018-12-20] MEDS: Multivitamin Tab PO SCH (09:03)
[2018-12-20] MEDS: Potassium Chloride 10 mEq ER Tab PO SCH (09:03)
--- NOTE | 2018-12-20 11:59 | Internal Medicine Prog Note ---
Internal Medicine Subjective - Subjective Patient seen and examined:: with staff, chart reviewed Patient is:: awake, verbal, interactive Per staff patient has:: no adverse event, no episodes of fall, poor appetite, tolerating meds Internal Medicine Objective - Results Result Diagrams: 12/15/18 21:00 12/15/18 21:00 Recent Labs: Laboratory Last Values WBC 8.0 Th/cmm (4.8-10.8) 12/15/18 21:00 RBC 4.72 Mil/cmm (3.80-5.80) 12/15/18 21:00 Hgb 13.4 gm/dL (12-16) 12/15/18 21:00 Hct 38.9 % (41.0-60) L 12/15/18 21:00 MCV 82.4 fl (80-99) 12/15/18 21:00 MCH 28.3 pg (27.0-31.0) 12/15/18 21:00 MCHC Differential 34.4 pg (28.0-36.0) 12/15/18 21:00 RDW 12.1 % (11.5-20.0) 12/15/18 21:00 Plt Count 310 Th/cmm (150-400) 12/15/18 21:00 MPV 7.5 fl 12/15/18 21:00 Neutrophils % 52.8 % (40.0-80.0) 12/15/18 21:00 Lymphocytes % 30.7 % (20.0-50.0) 12/15/18 21:00 Monocytes % 12.0 % (2.0-10.0) H 12/15/18 21:00 Eosinophils % 3.7 % (0.0-5.0) 12/15/18 21:00 Basophils % 0.8 % (0.0-2.0) 12/15/18 21:00 Sodium 137 mEq/L (136-145) 12/15/18 21:00 Potassium 3.8 mEq/L (3.5-5.1) 12/15/18 21:00 Chloride 101 mEq/L (98-107) 12/15/18 21:00 Carbon Dioxide 25.6 mEq/L (21.0-31.0) 12/15/18 21:00 Anion Gap 14.2 (7.0-16.0) 12/15/18 21:00 BUN 17 mg/dL (7-25) 12/15/18 21:00 Creatinine 0.9 mg/dL (0.7-1.3) 12/15/18 21:00 Est GFR ( Amer) TNP 12/15/18 21:00 Est GFR (Non-Af Amer) TNP 12/15/18 21:00 BUN/Creatinine Ratio 18.9 12/15/18 21:00 Glucose 187 mg/dL (70-105) H 12/15/18 21:00 Calcium 9.5 mg/dL (8.6-10.3) 12/15/18 21:00 Total Bilirubin 0.5 mg/dL (0.3-1.0) 12/15/18 21:00 AST 10 U/L (13-39) L 12/15/18 21:00 ALT 10 U/L (7-52) 12/15/18 21:00 Alkaline Phosphatase 61 U/L (34-104) 12/15/18 21:00 Troponin I 0.01 ng/mL (0.01-0.05) 12/15/18 21:00 Total Protein 6.3 gm/dL (6.0-8.3) 12/15/18 21:00 Albumin 3.7 gm/dL (4.2-5.5) L 12/15/18 21:00 Globulin 2.6 gm/dL 12/15/18 21:00 Albumin/Globulin Ratio 1.4 (1.0-1.8) 12/15/18 21:00 Triglycerides 215 mg/dL (<150) H 12/15/18 21:00 Cholesterol 140 mg/dL (<200) 12/15/18 21:00 LDL Cholesterol Direct 92 mg/dL (75-193) 12/15/18 21:00 HDL Cholesterol 32 mg/dL (23-92) 12/15/18 21:00 TSH 3.45 uIU/ml (0.34-5.60) 12/15/18 21:00 RPR NONREACTIVE (NONREACTIVE) 12/15/18 21:00 - Physical Exam Vitals and I&O: Vital Signs Temp 98.1 F 12/20/18 05:51 Pulse 74 12/20/18 09:02 Resp 19 12/20/18 05:51 BP 134/67 07/23/19 09:02 Pulse Ox 96 12/20/18 05:51 Intake & Output 12/19/18 12/20/18 12/20/18 18:59 06:59 18:59 Intake Total 850 180 Balance 850 180 Intake: Oral 850 180 Other: # Voids 3 1 # Bowel Movements 1 0 Active Medications: Current Medications Acetaminophen (Tylenol) 650 mg PO Q6HR PRN PRN Reason: Pain or Fever >101 Stop: 02/14/19 12:23 Last Admin: 12/19/18 20:15 Dose: 650 mg Aspirin (Aspirin Chewable) 81 mg PO DAILY [facility] Stop: 02/15/19 08:59 Last Admin: 12/20/18 09:02 Dose: 81 mg Atorvastatin Calcium (Lipitor) 10 mg PO HS [facility]; Protocol Stop: 02/14/19 20:59 Last Admin: 12/19/18 20:15 Dose: 10 mg Bisacodyl (Dulcolax 10 Mg Supp) 10 mg RC DAILY PRN PRN Reason: Constipation Stop: 02/14/19 12:23 Dextrose (Glutose 40%) 18.75 gm PO PRN PRN PRN Reason: BS Below 70 & tolerate po Stop: 02/14/19 12:24 Diltiazem HCl (Cardizem Cd) 240 mg PO DAILY [facility] Stop: 02/15/19 08:59 Last Admin: 12/20/18 09:01 Dose: Not Given Furosemide (Lasix) 20 mg PO BID [facility] Stop: 02/14/19 16:59 Last Admin: 12/20/18 09:01 Dose: 20 mg Glucagon (Glucagen) 1 mg IM PRN PRN PRN Reason: BS Below 70 & not tolerate po Stop: 02/14/19 12:24 Insulin Human Lispro (Humalog Insulin Sliding Scale) 0 units SUBQ ACHS [facility]; Protocol Stop: 02/14/19 16:29 Last Admin: 12/19/18 20:44 Dose: Not Given Lorazepam (Ativan) 0.5 mg PO Q4H PRN; Protocol PRN Reason: Anxiety Stop: 02/14/19 00:10 Last Admin: 12/18/18 09:00 Dose: 0.5 mg Losartan Potassium (Cozaar) 25 mg PO DAILY [facility] Stop: 02/15/19 08:59 Last Admin: 12/20/18 09:02 Dose: 25 mg Magnesium Hydroxide (Milk Of Magnesia) 30 ml PO DAILY PRN PRN Reason: Constipation Stop: 02/14/19 12:23 Metformin HCl (Glucophage) 500 mg PO BIDWM [facility] Stop: 02/14/19 17:59 Last Admin: 12/20/18 09:00 Dose: 500 mg Multivitamins/Vitamin C (Theragran) 1 tab PO DAILY [facility] Stop: 02/15/19 08:59 Last Admin: 12/20/18 09:03 Dose: 1 tab Potassium Chloride (Klor-Con) 10 meq PO DAILY [facility] Stop: 02/15/19 08:59 Last Admin: 12/20/18 09:03 Dose: 10 meq Quetiapine Fumarate (Seroquel) 25 mg PO BID [facility]; Protocol Stop: 02/14/19 08:59 Last Admin: 12/20/18 09:00 Dose: 25 mg Rivastigmine Tartrate (Exelon) 1.5 mg PO BIDWM [facility] Stop: 02/14/19 17:59 Last Admin: 12/20/18 08:59 Dose: 1.5 mg Tamsulosin HCl (Flomax) 0.4 mg PO DAILY [facility] Stop: 02/15/19 08:59 Last Admin: 12/20/18 09:00 Dose: 0.4 mg General: alert, obese HEENT: NC/AT, PERRLA Neck: Supple Lungs: CTAB Cardiovascular: RRR, Normal S1, Normal S2 Abdomen: soft, non-tender, non-distended, positive bowel sound Extremities: excoriation, contracture Neurological: disorganized Internal Medicine Assmt/Plan - Assessment Assessment: ASSESSMENT AND PLAN: Anemia, diabetes, hypertension, gastroesophageal reflux disease, benign prostatic hypertrophy, paroxysmal atrial fibrillation, Alzheimer dementia, and hyperglycemia. - Plan Plan: PLAN: Continue the patient on ADA diet and insulin sliding scale. Continue metformin. Continue current antihypertensive medication. We will place him on fall precautions. Continue with current care. We will continue to follow with the patient with Dr. Ifeanyi to. Nutritional Asmnt/Malnutr-PDOC - Dietary Evaluation Malnutrition Findings (Please click <Entered> for more info): Nutritional Asmnt/Malnutrition Start: 12/16/18 08: 21 Text: Status: Complete Freq: Protocol: Document 12/17/18 10:01 ELLE (Rec: 12/17/18 10:22 ELLE ROSI- [email or web address]) Nutritional Asmnt/Malnutrition Patient General Information Nutritional Screening Moderate Risk Diagnosis Psychosis Pertinent Medical Hx/Surgical Hx HTN, Diabetes, GERD, BPH, paroxysomal atrial fibrillation, Alzheimer dementia, high cholesterol Subjective Information Patient was admitted from nursing facility for agitation . Patient with 1-2+ edema, on lasix. Per nursing notes, patient easily agitated, aggressive and unpredictable, sometimes striking, hitting and spitting. Patient was seen in Radha chair in dining room at time of visit. 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 Current Diet Order/ Nutrition Support mechanical soft, 45gm CCHO, nectar thick liquids, chopped, no added sodium Patient / S.O Not Indicated Pertinent Medications Lipitor, dulcolax, D50W, Lasix , glucagon, humalog, cozaar, MOM, Metformin, Theragran, klor-con Pertinent Labs (12/15) Glucose 187, Albumin 3. 7, TAG 215 Nutritional Hx/Data Height 1.7 m Height (Calculated Centimeters) 170.2 Current Weight (lbs) 83.915 kg Weight (Calculated Kilograms) 83.9 Weight (Calculated Grams) 44438.6 [place] Body Weight 148 % [place] Body Weight 125 Body Mass Index (BMI) 29.0 Recent Weight Change No Weight Status Overweight GI Symptoms GI Symptoms None Last BM 12/16 x 1 Difficult in: None Food Allergies No Cultural/Ethnic/Catholic Belief none indicated Usual diet at home unknown Skin Integrity/Comment: Moses 16, bruises, intact Current %PO Good (75-100%) Estimated Nutritional Goals BEE in Kcals: Using Current wt Calories/Kcals/Kg 84kg 22-27 kcal/kg Kcals Calculated ~4606-7558 kcal/day Protein: Using Current wt Protein g/k.8-1 gm/kg Protein Calculated ~65-85 gm/day Fluid: ml ~0174-5739 ml/day Nutritional Problem No current Nutrition Prob Problem No nutrition diagnosis at this time Intervention/Recommendation Comments 1. Modify diet to 60 gm CCHO to better meet nutrient needs. Continue No added sodium due to edema. Continue mechanical soft, chopped diet with nectar thick liquids as appropriate. Expected Outcomes/Goals Expected Outcomes/Goals Adequate nutrition to meet >75 % estimated needs, improved labs, skin remains intact, weight maintenance or trend toward ideal body weight. F/U LR 12/24
[2018-12-20] MEDS: Atorvastatin Calcium 10 MG TAB PO SCH (20:41)
[2018-12-21] MEDS: INSULIN LISPRO SLIDING SCALE 100 UNITS/ML UNIT SUBQ SCH ×4 (08:00→20:44)
[2018-12-21] MEDS: Aspirin 81mg Chewable Tab PO SCH (09:00)
[2018-12-21] MEDS: Multivitamin Tab PO SCH (09:00)
[2018-12-21] MEDS: Diltiazem CD 120 mg 24H PO SCH (09:36)
[2018-12-21] MEDS: Potassium Chloride 10 mEq ER Tab PO SCH (09:39)
--- NOTE | 2018-12-21 10:30 | Progress Notes ---
DATE: 12/20/2018 PSYCHIATRIC PROGRESS NOTE SUBJECTIVE: Staff was spoken to. The patient is interviewed. Mood is noted to be less irritable. The patient is isolative and withdrawn. The patient is bedbound at this time. No major behavioral problems are reported today. The patient is currently on 25 mg of the Seroquel and has been able to tolerate the medication. No side effects to the medications are noted. ASSESSMENT: The patient's impulsivity is coming under control. PLAN: To continue the patient with supportive therapy. I encouraged the patient to verbalize the concerns rather than to act out. JOB# [id number]
--- NOTE | 2018-12-21 12:12 | Internal Medicine Prog Note ---
Internal Medicine Subjective - Subjective Patient seen and examined:: with staff, chart reviewed Patient is:: awake, verbal, interactive Per staff patient has:: no adverse event, no episodes of fall, poor appetite, tolerating meds Internal Medicine Objective - Results Result Diagrams: 12/15/18 21:00 12/15/18 21:00 Recent Labs: Laboratory Last Values WBC 8.0 Th/cmm (4.8-10.8) 12/15/18 21:00 RBC 4.72 Mil/cmm (3.80-5.80) 12/15/18 21:00 Hgb 13.4 gm/dL (12-16) 12/15/18 21:00 Hct 38.9 % (41.0-60) L 12/15/18 21:00 MCV 82.4 fl (80-99) 12/15/18 21:00 MCH 28.3 pg (27.0-31.0) 12/15/18 21:00 MCHC Differential 34.4 pg (28.0-36.0) 12/15/18 21:00 RDW 12.1 % (11.5-20.0) 12/15/18 21:00 Plt Count 310 Th/cmm (150-400) 12/15/18 21:00 MPV 7.5 fl 12/15/18 21:00 Neutrophils % 52.8 % (40.0-80.0) 12/15/18 21:00 Lymphocytes % 30.7 % (20.0-50.0) 12/15/18 21:00 Monocytes % 12.0 % (2.0-10.0) H 12/15/18 21:00 Eosinophils % 3.7 % (0.0-5.0) 12/15/18 21:00 Basophils % 0.8 % (0.0-2.0) 12/15/18 21:00 Sodium 137 mEq/L (136-145) 12/15/18 21:00 Potassium 3.8 mEq/L (3.5-5.1) 12/15/18 21:00 Chloride 101 mEq/L (98-107) 12/15/18 21:00 Carbon Dioxide 25.6 mEq/L (21.0-31.0) 12/15/18 21:00 Anion Gap 14.2 (7.0-16.0) 12/15/18 21:00 BUN 17 mg/dL (7-25) 12/15/18 21:00 Creatinine 0.9 mg/dL (0.7-1.3) 12/15/18 21:00 Est GFR ( Amer) TNP 12/15/18 21:00 Est GFR (Non-Af Amer) TNP 12/15/18 21:00 BUN/Creatinine Ratio 18.9 12/15/18 21:00 Glucose 187 mg/dL (70-105) H 12/15/18 21:00 Calcium 9.5 mg/dL (8.6-10.3) 12/15/18 21:00 Total Bilirubin 0.5 mg/dL (0.3-1.0) 12/15/18 21:00 AST 10 U/L (13-39) L 12/15/18 21:00 ALT 10 U/L (7-52) 12/15/18 21:00 Alkaline Phosphatase 61 U/L (34-104) 12/15/18 21:00 Troponin I 0.01 ng/mL (0.01-0.05) 12/15/18 21:00 Total Protein 6.3 gm/dL (6.0-8.3) 12/15/18 21:00 Albumin 3.7 gm/dL (4.2-5.5) L 12/15/18 21:00 Globulin 2.6 gm/dL 12/15/18 21:00 Albumin/Globulin Ratio 1.4 (1.0-1.8) 12/15/18 21:00 Triglycerides 215 mg/dL (<150) H 12/15/18 21:00 Cholesterol 140 mg/dL (<200) 12/15/18 21:00 LDL Cholesterol Direct 92 mg/dL (75-193) 12/15/18 21:00 HDL Cholesterol 32 mg/dL (23-92) 12/15/18 21:00 TSH 3.45 uIU/ml (0.34-5.60) 12/15/18 21:00 RPR NONREACTIVE (NONREACTIVE) 12/15/18 21:00 - Physical Exam Vitals and I&O: Vital Signs Temp 98.2 F 12/20/18 20:40 Pulse 74 12/21/18 09:36 Resp 20 12/20/18 20:40 BP 142/73 07/24/19 09:00 Pulse Ox 97 12/20/18 20:40 Intake & Output 12/20/18 12/21/18 12/21/18 18:59 06:59 18:59 Intake Total 120 Balance 120 Intake: Oral 120 Other: # Voids 3 2 # Bowel Movements 1 0 Active Medications: Current Medications Acetaminophen (Tylenol) 650 mg PO Q6HR PRN PRN Reason: Pain or Fever >101 Stop: 02/14/19 12:23 Last Admin: 12/19/18 20:15 Dose: 650 mg Aspirin (Aspirin Chewable) 81 mg PO DAILY [facility] Stop: 02/15/19 08:59 Last Admin: 12/21/18 09:00 Dose: 81 mg Atorvastatin Calcium (Lipitor) 10 mg PO HS [facility]; Protocol Stop: 02/14/19 20:59 Last Admin: 12/20/18 20:41 Dose: 10 mg Bisacodyl (Dulcolax 10 Mg Supp) 10 mg RC DAILY PRN PRN Reason: Constipation Stop: 02/14/19 12:23 Dextrose (Glutose 40%) 18.75 gm PO PRN PRN PRN Reason: BS Below 70 & tolerate po Stop: 02/14/19 12:24 Diltiazem HCl (Cardizem Cd) 240 mg PO DAILY [facility] Stop: 02/15/19 08:59 Last Admin: 12/21/18 09:36 Dose: 240 mg Furosemide (Lasix) 20 mg PO BID [facility] Stop: 02/14/19 16:59 Last Admin: 12/21/18 09:00 Dose: 20 mg Glucagon (Glucagen) 1 mg IM PRN PRN PRN Reason: BS Below 70 & not tolerate po Stop: 02/14/19 12:24 Insulin Human Lispro (Humalog Insulin Sliding Scale) 0 units SUBQ ACHS [facility]; Protocol Stop: 02/14/19 16:29 Last Admin: 12/20/18 20:56 Dose: 4 units Lorazepam (Ativan) 0.5 mg PO Q4H PRN; Protocol PRN Reason: Anxiety Stop: 02/14/19 00:10 Last Admin: 12/18/18 09:00 Dose: 0.5 mg Losartan Potassium (Cozaar) 25 mg PO DAILY [facility] Stop: 02/15/19 08:59 Last Admin: 12/21/18 09:00 Dose: 25 mg Magnesium Hydroxide (Milk Of Magnesia) 30 ml PO DAILY PRN PRN Reason: Constipation Stop: 02/14/19 12:23 Metformin HCl (Glucophage) 500 mg PO BIDWM [facility] Stop: 02/14/19 17:59 Last Admin: 12/21/18 09:00 Dose: 500 mg Multivitamins/Vitamin C (Theragran) 1 tab PO DAILY [facility] Stop: 02/15/19 08:59 Last Admin: 12/21/18 09:00 Dose: 1 tab Potassium Chloride (Klor-Con) 10 meq PO DAILY [facility] Stop: 02/15/19 08:59 Last Admin: 12/21/18 09:39 Dose: 10 meq Quetiapine Fumarate (Seroquel) 25 mg PO BID [facility]; Protocol Stop: 02/14/19 08:59 Last Admin: 12/21/18 09:00 Dose: 25 mg Rivastigmine Tartrate (Exelon) 1.5 mg PO BIDWM [facility] Stop: 02/14/19 17:59 Last Admin: 12/21/18 09:00 Dose: 1.5 mg Tamsulosin HCl (Flomax) 0.4 mg PO DAILY [facility] Stop: 02/15/19 08:59 Last Admin: 12/21/18 09:00 Dose: 0.4 mg General: alert, obese HEENT: NC/AT, PERRLA Neck: Supple Lungs: CTAB Cardiovascular: RRR, Normal S1, Normal S2 Abdomen: soft, non-tender, non-distended, positive bowel sound Extremities: excoriation, contracture Neurological: disorganized Internal Medicine Assmt/Plan - Assessment Assessment: ASSESSMENT AND PLAN: Anemia, diabetes, hypertension, gastroesophageal reflux disease, benign prostatic hypertrophy, paroxysmal atrial fibrillation, Alzheimer dementia, and hyperglycemia. - Plan Plan: PLAN: Continue the patient on ADA diet and insulin sliding scale. Continue metformin. Continue current antihypertensive medication. We will place him on fall precautions. Continue with current care. We will continue to follow with the patient with Dr. Ifeanyi to. Nutritional Asmnt/Malnutr-PDOC - Dietary Evaluation Malnutrition Findings (Please click <Entered> for more info): Nutritional Asmnt/Malnutrition Start: 12/16/18 08: 21 Text: Status: Complete Freq: Protocol: Document 12/17/18 10:01 ELLE (Rec: 12/17/18 10:22 ELLE ROSI- [email or web address]) Nutritional Asmnt/Malnutrition Patient General Information Nutritional Screening Moderate Risk Diagnosis Psychosis Pertinent Medical Hx/Surgical Hx HTN, Diabetes, GERD, BPH, paroxysomal atrial fibrillation, Alzheimer dementia, high cholesterol Subjective Information Patient was admitted from nursing facility for agitation . Patient with 1-2+ edema, on lasix. Per nursing notes, patient easily agitated, aggressive and unpredictable, sometimes striking, hitting and spitting. Patient was seen in Radha chair in dining room at time of visit. 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 Current Diet Order/ Nutrition Support mechanical soft, 45gm CCHO, nectar thick liquids, chopped, no added sodium Patient / S.O Not Indicated Pertinent Medications Lipitor, dulcolax, D50W, Lasix , glucagon, humalog, cozaar, MOM, Metformin, Theragran, klor-con Pertinent Labs (12/15) Glucose 187, Albumin 3. 7, TAG 215 Nutritional Hx/Data Height 1.7 m Height (Calculated Centimeters) 170.2 Current Weight (lbs) 83.915 kg Weight (Calculated Kilograms) 83.9 Weight (Calculated Grams) 59092.6 [place] Body Weight 148 % [place] Body Weight 125 Body Mass Index (BMI) 29.0 Recent Weight Change No Weight Status Overweight GI Symptoms GI Symptoms None Last BM 12/16 x 1 Difficult in: None Food Allergies No Cultural/Ethnic/Voodoo Belief none indicated Usual diet at home unknown Skin Integrity/Comment: Moses 16, bruises, intact Current %PO Good (75-100%) Estimated Nutritional Goals BEE in Kcals: Using Current wt Calories/Kcals/Kg 84kg 22-27 kcal/kg Kcals Calculated ~9561-5733 kcal/day Protein: Using Current wt Protein g/k.8-1 gm/kg Protein Calculated ~65-85 gm/day Fluid: ml ~4540-2181 ml/day Nutritional Problem No current Nutrition Prob Problem No nutrition diagnosis at this time Intervention/Recommendation Comments 1. Modify diet to 60 gm CCHO to better meet nutrient needs. Continue No added sodium due to edema. Continue mechanical soft, chopped diet with nectar thick liquids as appropriate. Expected Outcomes/Goals Expected Outcomes/Goals Adequate nutrition to meet >75 % estimated needs, improved labs, skin remains intact, weight maintenance or trend toward ideal body weight. F/U LR 12/24
[2018-12-21] MEDS: Atorvastatin Calcium 10 MG TAB PO SCH (20:44)
--- NOTE | 2018-12-21 22:18 | Progress Notes ---
DATE: 12/21/2018 PSYCHOLOGY PROGRESS NOTE SUBJECTIVE: The patient is seen and is interviewed. Case is discussed with staff. The patient presents as less irritable this visit; however, the patient continues to be isolative and withdrawn. Staff reports the patient has not had any major behavioral problems in the last 24-48 hours. The patient states that he feels he is ready to discharge. OBJECTIVE: Mood is less irritable. Affect is constricted. Thought process shows to be confused. The patient denied any hallucinations or delusions. The patient has been taking his p.o. medications. Impulse control seems to be improving. ASSESSMENT AND PLAN: Impulsivity is coming under control. We provided remotivation for the patient to stay compliant with his care and to demonstrate emotional and self-regulation by verbalizing his concerns versus acting out. We provided coping strategies for phase of life issues. We will follow up in 2 days to continue the present treatment if the patient remains admitted on the unit. JOB# [id number] JASPREET
--- NOTE | 2018-12-22 03:13 | Progress Notes ---
DATE: 12/21/2018 SUBJECTIVE: Staff was spoken to. The patient is interviewed. Mood is noted to be less irritable. The patient is isolative and withdrawn. The patient has been reluctant to get out of the bed. The patient is not presenting with any major behavioral problems today. The patient is reported to be compliant with the medication. No aggressive behavior is reported today. ASSESSMENT: The patient's psychosis is resolving. No agitated behavior is noted. Since the patient has been too groggy, it is decided to change the Seroquel to 25 mg only at night time and follow the patient with the supportive therapy. JOB# [id number]
[2018-12-22] MEDS: INSULIN LISPRO SLIDING SCALE 100 UNITS/ML UNIT SUBQ SCH ×4 (06:34→21:50)
[2018-12-22] MEDS: Diltiazem CD 120 mg 24H PO SCH (09:40)
[2018-12-22] MEDS: Aspirin 81mg Chewable Tab PO SCH (09:40)
[2018-12-22] MEDS: Potassium Chloride 10 mEq ER Tab PO SCH (09:41)
[2018-12-22] MEDS: Multivitamin Tab PO SCH (09:41)
--- NOTE | 2018-12-22 12:44 | Progress Notes ---
DATE: 12/22/2018 SUBJECTIVE: Staff was spoken to. The patient is interviewed. Mood is noted to be less irritable. Affect is appropriate. The patient is isolative and withdrawn. The patient is currently on 25 mg of the Seroquel at night time and has been able to tolerate the medications. No side effects to medications are noted. Sleep is noted to be improving. Appetite is noted to be fair, but the patient is complaining of being tired all the time. ASSESSMENT: The patient is still demented and impulsivity is a problem. PLAN: To continue the patient with the current medications. I encouraged the patient to verbalize the concerns rather than to act out. JOB# [id number]
--- NOTE | 2018-12-22 13:04 | Internal Medicine Prog Note ---
Internal Medicine Subjective - Subjective Patient seen and examined:: with staff, chart reviewed Patient is:: awake, verbal, interactive Per staff patient has:: no adverse event, no episodes of fall, poor appetite, tolerating meds Internal Medicine Objective - Results Result Diagrams: 12/15/18 21:00 12/15/18 21:00 Recent Labs: Laboratory Last Values WBC 8.0 Th/cmm (4.8-10.8) 12/15/18 21:00 RBC 4.72 Mil/cmm (3.80-5.80) 12/15/18 21:00 Hgb 13.4 gm/dL (12-16) 12/15/18 21:00 Hct 38.9 % (41.0-60) L 12/15/18 21:00 MCV 82.4 fl (80-99) 12/15/18 21:00 MCH 28.3 pg (27.0-31.0) 12/15/18 21:00 MCHC Differential 34.4 pg (28.0-36.0) 12/15/18 21:00 RDW 12.1 % (11.5-20.0) 12/15/18 21:00 Plt Count 310 Th/cmm (150-400) 12/15/18 21:00 MPV 7.5 fl 12/15/18 21:00 Neutrophils % 52.8 % (40.0-80.0) 12/15/18 21:00 Lymphocytes % 30.7 % (20.0-50.0) 12/15/18 21:00 Monocytes % 12.0 % (2.0-10.0) H 12/15/18 21:00 Eosinophils % 3.7 % (0.0-5.0) 12/15/18 21:00 Basophils % 0.8 % (0.0-2.0) 12/15/18 21:00 Sodium 137 mEq/L (136-145) 12/15/18 21:00 Potassium 3.8 mEq/L (3.5-5.1) 12/15/18 21:00 Chloride 101 mEq/L (98-107) 12/15/18 21:00 Carbon Dioxide 25.6 mEq/L (21.0-31.0) 12/15/18 21:00 Anion Gap 14.2 (7.0-16.0) 12/15/18 21:00 BUN 17 mg/dL (7-25) 12/15/18 21:00 Creatinine 0.9 mg/dL (0.7-1.3) 12/15/18 21:00 Est GFR ( Amer) TNP 12/15/18 21:00 Est GFR (Non-Af Amer) TNP 12/15/18 21:00 BUN/Creatinine Ratio 18.9 12/15/18 21:00 Glucose 187 mg/dL (70-105) H 12/15/18 21:00 Calcium 9.5 mg/dL (8.6-10.3) 12/15/18 21:00 Total Bilirubin 0.5 mg/dL (0.3-1.0) 12/15/18 21:00 AST 10 U/L (13-39) L 12/15/18 21:00 ALT 10 U/L (7-52) 12/15/18 21:00 Alkaline Phosphatase 61 U/L (34-104) 12/15/18 21:00 Troponin I 0.01 ng/mL (0.01-0.05) 12/15/18 21:00 Total Protein 6.3 gm/dL (6.0-8.3) 12/15/18 21:00 Albumin 3.7 gm/dL (4.2-5.5) L 12/15/18 21:00 Globulin 2.6 gm/dL 12/15/18 21:00 Albumin/Globulin Ratio 1.4 (1.0-1.8) 12/15/18 21:00 Triglycerides 215 mg/dL (<150) H 12/15/18 21:00 Cholesterol 140 mg/dL (<200) 12/15/18 21:00 LDL Cholesterol Direct 92 mg/dL (75-193) 12/15/18 21:00 HDL Cholesterol 32 mg/dL (23-92) 12/15/18 21:00 TSH 3.45 uIU/ml (0.34-5.60) 12/15/18 21:00 RPR NONREACTIVE (NONREACTIVE) 12/15/18 21:00 - Physical Exam Vitals and I&O: Vital Signs Temp 97.6 F 12/22/18 06:06 Pulse 70 12/22/18 06:06 Resp 18 12/22/18 06:06 BP 131/69 07/25/19 06:06 Pulse Ox 95 12/22/18 06:06 Intake & Output 12/21/18 12/22/18 12/22/18 18:59 06:59 18:59 Intake Total 120 Balance 120 Intake: Oral 120 Other: # Voids 3 # Bowel Movements 0 Active Medications: Current Medications Acetaminophen (Tylenol) 650 mg PO Q6HR PRN PRN Reason: Pain or Fever >101 Stop: 02/14/19 12:23 Last Admin: 12/19/18 20:15 Dose: 650 mg Aspirin (Aspirin Chewable) 81 mg PO DAILY [facility] Stop: 02/15/19 08:59 Last Admin: 12/22/18 09:40 Dose: Not Given Atorvastatin Calcium (Lipitor) 10 mg PO HS [facility]; Protocol Stop: 02/14/19 20:59 Last Admin: 12/21/18 20:44 Dose: 10 mg Bisacodyl (Dulcolax 10 Mg Supp) 10 mg RC DAILY PRN PRN Reason: Constipation Stop: 02/14/19 12:23 Dextrose (Glutose 40%) 18.75 gm PO PRN PRN PRN Reason: BS Below 70 & tolerate po Stop: 02/14/19 12:24 Diltiazem HCl (Cardizem Cd) 240 mg PO DAILY [facility] Stop: 02/15/19 08:59 Last Admin: 12/22/18 09:40 Dose: Not Given Furosemide (Lasix) 20 mg PO BID [facility] Stop: 02/14/19 16:59 Last Admin: 12/22/18 09:41 Dose: Not Given Glucagon (Glucagen) 1 mg IM PRN PRN PRN Reason: BS Below 70 & not tolerate po Stop: 02/14/19 12:24 Insulin Human Lispro (Humalog Insulin Sliding Scale) 0 units SUBQ ACHS [facility]; Protocol Stop: 02/14/19 16:29 Last Admin: 12/22/18 11:39 Dose: Not Given Lorazepam (Ativan) 0.5 mg PO Q4H PRN; Protocol PRN Reason: Anxiety Stop: 02/14/19 00:10 Last Admin: 12/18/18 09:00 Dose: 0.5 mg Losartan Potassium (Cozaar) 25 mg PO DAILY [facility] Stop: 02/15/19 08:59 Last Admin: 12/22/18 09:41 Dose: Not Given Magnesium Hydroxide (Milk Of Magnesia) 30 ml PO DAILY PRN PRN Reason: Constipation Stop: 02/14/19 12:23 Metformin HCl (Glucophage) 500 mg PO BIDWM [facility] Stop: 02/14/19 17:59 Last Admin: 12/22/18 09:40 Dose: Not Given Multivitamins/Vitamin C (Theragran) 1 tab PO DAILY [facility] Stop: 02/15/19 08:59 Last Admin: 12/22/18 09:41 Dose: Not Given Potassium Chloride (Klor-Con) 10 meq PO DAILY [facility] Stop: 02/15/19 08:59 Last Admin: 12/22/18 09:41 Dose: Not Given Quetiapine Fumarate (Seroquel) 25 mg PO HS [facility]; Protocol Stop: 02/19/19 20:59 Rivastigmine Tartrate (Exelon) 1.5 mg PO BIDWM [facility] Stop: 02/14/19 17:59 Last Admin: 12/22/18 09:40 Dose: Not Given Tamsulosin HCl (Flomax) 0.4 mg PO DAILY [facility] Stop: 02/15/19 08:59 Last Admin: 12/22/18 09:41 Dose: Not Given General: alert, obese HEENT: NC/AT, PERRLA Neck: Supple Lungs: CTAB Cardiovascular: RRR, Normal S1, Normal S2 Abdomen: soft, non-tender, non-distended, positive bowel sound Extremities: excoriation, contracture Neurological: disorganized Internal Medicine Assmt/Plan - Assessment Assessment: ASSESSMENT AND PLAN: Anemia, diabetes, hypertension, gastroesophageal reflux disease, benign prostatic hypertrophy, paroxysmal atrial fibrillation, Alzheimer dementia, and hyperglycemia. - Plan Plan: PLAN: Continue the patient on ADA diet and insulin sliding scale. Continue metformin. Continue current antihypertensive medication. We will place him on fall precautions. Continue with current care. We will continue to follow with the patient with youDr. Suggs. Nutritional Asmnt/Malnutr-PDOC - Dietary Evaluation Malnutrition Findings (Please click <Entered> for more info): Nutritional Asmnt/Malnutrition Start: 12/16/18 08: 21 Text: Status: Complete Freq: Protocol: Document 12/17/18 10:01 ELLE (Rec: 12/17/18 10:22 ELLE ARANDA- [email or web address]) Nutritional Asmnt/Malnutrition Patient General Information Nutritional Screening Moderate Risk Diagnosis Psychosis Pertinent Medical Hx/Surgical Hx HTN, Diabetes, GERD, BPH, paroxysomal atrial fibrillation, Alzheimer dementia, high cholesterol Subjective Information Patient was admitted from nursing facility for agitation . Patient with 1-2+ edema, on lasix. Per nursing notes, patient easily agitated, aggressive and unpredictable, sometimes striking, hitting and spitting. Patient was seen in Radha chair in dining room at time of visit. Per WAVE SOLDER OFFBEARER, he [id number]% of meals without difficulty. Current Diet Order/ Nutrition Support mechanical soft, 45gm CCHO, nectar thick liquids, chopped, no added sodium Patient / S.O Not Indicated Pertinent Medications Lipitor, dulcolax, D50W, Lasix , glucagon, humalog, cozaar, MOM, Metformin, Theragran, klor-con Pertinent Labs (12/15) Glucose 187, Albumin 3. 7, TAG 215 Nutritional Hx/Data Height 1.7 m Height (Calculated Centimeters) 170.2 Current Weight (lbs) 83.915 kg Weight (Calculated Kilograms) 83.9 Weight (Calculated Grams) 71143.6 [place] Body Weight 148 % [place] Body Weight 125 Body Mass Index (BMI) 29.0 Recent Weight Change No Weight Status Overweight GI Symptoms GI Symptoms None Last BM 12/16 x 1 Difficult in: None Food Allergies No Cultural/Ethnic/Restorationist Belief none indicated Usual diet at home unknown Skin Integrity/Comment: Moses 16, bruises, intact Current %PO Good (75-100%) Estimated Nutritional Goals BEE in Kcals: Using Current wt Calories/Kcals/Kg 84kg 22-27 kcal/kg Kcals Calculated ~8037-7530 kcal/day Protein: Using Current wt Protein g/k.8-1 gm/kg Protein Calculated ~65-85 gm/day Fluid: ml ~9488-3341 ml/day Nutritional Problem No current Nutrition Prob Problem No nutrition diagnosis at this time Intervention/Recommendation Comments 1. Modify diet to 60 gm CCHO to better meet nutrient needs. Continue No added sodium due to edema. Continue mechanical soft, chopped diet with nectar thick liquids as appropriate. Expected Outcomes/Goals Expected Outcomes/Goals Adequate nutrition to meet >75 % estimated needs, improved labs, skin remains intact, weight maintenance or trend toward ideal body weight. F/U LR 12/24
[2018-12-22] MEDS: Atorvastatin Calcium 10 MG TAB PO SCH (21:33)
[2018-12-23] MEDS: INSULIN LISPRO SLIDING SCALE 100 UNITS/ML UNIT SUBQ SCH ×4 (06:41→21:20)
[2018-12-23] MEDS: Potassium Chloride 10 mEq ER Tab PO SCH (08:54)
[2018-12-23] MEDS: Diltiazem CD 120 mg 24H PO SCH (08:54)
[2018-12-23] MEDS: Aspirin 81mg Chewable Tab PO SCH (08:54)
[2018-12-23] MEDS: Multivitamin Tab PO SCH (08:56)
--- NOTE | 2018-12-23 13:25 | Internal Medicine Prog Note ---
Internal Medicine Subjective - Subjective Patient seen and examined:: with staff, chart reviewed Patient is:: awake, verbal, interactive Per staff patient has:: no adverse event, no episodes of fall, poor appetite, tolerating meds Internal Medicine Objective - Results Result Diagrams: 12/15/18 21:00 12/15/18 21:00 Recent Labs: Laboratory Last Values WBC 8.0 Th/cmm (4.8-10.8) 12/15/18 21:00 RBC 4.72 Mil/cmm (3.80-5.80) 12/15/18 21:00 Hgb 13.4 gm/dL (12-16) 12/15/18 21:00 Hct 38.9 % (41.0-60) L 12/15/18 21:00 MCV 82.4 fl (80-99) 12/15/18 21:00 MCH 28.3 pg (27.0-31.0) 12/15/18 21:00 MCHC Differential 34.4 pg (28.0-36.0) 12/15/18 21:00 RDW 12.1 % (11.5-20.0) 12/15/18 21:00 Plt Count 310 Th/cmm (150-400) 12/15/18 21:00 MPV 7.5 fl 12/15/18 21:00 Neutrophils % 52.8 % (40.0-80.0) 12/15/18 21:00 Lymphocytes % 30.7 % (20.0-50.0) 12/15/18 21:00 Monocytes % 12.0 % (2.0-10.0) H 12/15/18 21:00 Eosinophils % 3.7 % (0.0-5.0) 12/15/18 21:00 Basophils % 0.8 % (0.0-2.0) 12/15/18 21:00 Sodium 137 mEq/L (136-145) 12/15/18 21:00 Potassium 3.8 mEq/L (3.5-5.1) 12/15/18 21:00 Chloride 101 mEq/L (98-107) 12/15/18 21:00 Carbon Dioxide 25.6 mEq/L (21.0-31.0) 12/15/18 21:00 Anion Gap 14.2 (7.0-16.0) 12/15/18 21:00 BUN 17 mg/dL (7-25) 12/15/18 21:00 Creatinine 0.9 mg/dL (0.7-1.3) 12/15/18 21:00 Est GFR ( Amer) TNP 12/15/18 21:00 Est GFR (Non-Af Amer) TNP 12/15/18 21:00 BUN/Creatinine Ratio 18.9 12/15/18 21:00 Glucose 187 mg/dL (70-105) H 12/15/18 21:00 Calcium 9.5 mg/dL (8.6-10.3) 12/15/18 21:00 Total Bilirubin 0.5 mg/dL (0.3-1.0) 12/15/18 21:00 AST 10 U/L (13-39) L 12/15/18 21:00 ALT 10 U/L (7-52) 12/15/18 21:00 Alkaline Phosphatase 61 U/L (34-104) 12/15/18 21:00 Troponin I 0.01 ng/mL (0.01-0.05) 12/15/18 21:00 Total Protein 6.3 gm/dL (6.0-8.3) 12/15/18 21:00 Albumin 3.7 gm/dL (4.2-5.5) L 12/15/18 21:00 Globulin 2.6 gm/dL 12/15/18 21:00 Albumin/Globulin Ratio 1.4 (1.0-1.8) 12/15/18 21:00 Triglycerides 215 mg/dL (<150) H 12/15/18 21:00 Cholesterol 140 mg/dL (<200) 12/15/18 21:00 LDL Cholesterol Direct 92 mg/dL (75-193) 12/15/18 21:00 HDL Cholesterol 32 mg/dL (23-92) 12/15/18 21:00 TSH 3.45 uIU/ml (0.34-5.60) 12/15/18 21:00 RPR NONREACTIVE (NONREACTIVE) 12/15/18 21:00 - Physical Exam Vitals and I&O: Vital Signs Temp 98.0 F 12/23/18 06:12 Pulse 73 12/23/18 08:54 Resp 20 12/23/18 06:12 BP 152/90 07/26/19 08:53 Pulse Ox 97 12/23/18 06:12 Intake & Output 12/22/18 12/23/18 12/23/18 18:59 06:59 18:59 Intake Total 700 240 Balance 700 240 Intake: Oral 460 240 Other 240 Other: # Voids 3 2 # Bowel Movements 1 0 Active Medications: Current Medications Acetaminophen (Tylenol) 650 mg PO Q6HR PRN PRN Reason: Pain or Fever >101 Stop: 02/14/19 12:23 Last Admin: 12/19/18 20:15 Dose: 650 mg Aspirin (Aspirin Chewable) 81 mg PO DAILY [facility] Stop: 02/15/19 08:59 Last Admin: 12/23/18 08:54 Dose: 81 mg Atorvastatin Calcium (Lipitor) 10 mg PO HS [facility]; Protocol Stop: 02/14/19 20:59 Last Admin: 12/22/18 21:33 Dose: 10 mg Bisacodyl (Dulcolax 10 Mg Supp) 10 mg RC DAILY PRN PRN Reason: Constipation Stop: 02/14/19 12:23 Dextrose (Glutose 40%) 18.75 gm PO PRN PRN PRN Reason: BS Below 70 & tolerate po Stop: 02/14/19 12:24 Diltiazem HCl (Cardizem Cd) 240 mg PO DAILY [facility] Stop: 02/15/19 08:59 Last Admin: 12/23/18 08:54 Dose: 240 mg Furosemide (Lasix) 20 mg PO BID [facility] Stop: 02/14/19 16:59 Last Admin: 12/23/18 08:52 Dose: 20 mg Glucagon (Glucagen) 1 mg IM PRN PRN PRN Reason: BS Below 70 & not tolerate po Stop: 02/14/19 12:24 Insulin Human Lispro (Humalog Insulin Sliding Scale) 0 units SUBQ ACHS [facility]; Protocol Stop: 02/14/19 16:29 Last Admin: 12/23/18 06:41 Dose: Not Given Lorazepam (Ativan) 0.5 mg PO Q4H PRN; Protocol PRN Reason: Anxiety Stop: 02/14/19 00:10 Last Admin: 12/18/18 09:00 Dose: 0.5 mg Losartan Potassium (Cozaar) 25 mg PO DAILY [facility] Stop: 02/15/19 08:59 Last Admin: 12/23/18 08:53 Dose: 25 mg Magnesium Hydroxide (Milk Of Magnesia) 30 ml PO DAILY PRN PRN Reason: Constipation Stop: 02/14/19 12:23 Metformin HCl (Glucophage) 500 mg PO BIDWM [facility] Stop: 02/14/19 17:59 Last Admin: 12/23/18 08:53 Dose: 500 mg Multivitamins/Vitamin C (Theragran) 1 tab PO DAILY [facility] Stop: 02/15/19 08:59 Last Admin: 12/23/18 08:56 Dose: 1 tab Potassium Chloride (Klor-Con) 10 meq PO DAILY [facility] Stop: 02/15/19 08:59 Last Admin: 12/23/18 08:54 Dose: 10 meq Quetiapine Fumarate (Seroquel) 25 mg PO HS [facility]; Protocol Stop: 02/19/19 20:59 Last Admin: 12/22/18 21:33 Dose: 25 mg Rivastigmine Tartrate (Exelon) 1.5 mg PO BIDWM [facility] Stop: 02/14/19 17:59 Last Admin: 12/22/18 17:19 Dose: 1.5 mg Tamsulosin HCl (Flomax) 0.4 mg PO DAILY [facility] Stop: 02/15/19 08:59 Last Admin: 12/23/18 08:51 Dose: 0.4 mg General: alert, obese HEENT: NC/AT, PERRLA Neck: Supple Lungs: CTAB Cardiovascular: RRR, Normal S1, Normal S2 Abdomen: soft, non-tender, non-distended, positive bowel sound Extremities: excoriation, contracture Neurological: disorganized Internal Medicine Assmt/Plan - Assessment Assessment: ASSESSMENT AND PLAN: Anemia, diabetes, hypertension, gastroesophageal reflux disease, benign prostatic hypertrophy, paroxysmal atrial fibrillation, Alzheimer dementia, and hyperglycemia. - Plan Plan: PLAN: Continue the patient on ADA diet and insulin sliding scale. Continue metformin. Continue current antihypertensive medication. We will place him on fall precautions. Continue with current care. We will continue to follow with the patient with youDr. Suggs. Nutritional Asmnt/Malnutr-PDOC - Dietary Evaluation Malnutrition Findings (Please click <Entered> for more info): Nutritional Asmnt/Malnutrition Start: 12/16/18 08: 21 Text: Status: Complete Freq: Protocol: Document 12/17/18 10:01 ELLE (Rec: 12/17/18 10:22 LELE ROSI- [email or web address]) Nutritional Asmnt/Malnutrition Patient General Information Nutritional Screening Moderate Risk Diagnosis Psychosis Pertinent Medical Hx/Surgical Hx HTN, Diabetes, GERD, BPH, paroxysomal atrial fibrillation, Alzheimer dementia, high cholesterol Subjective Information Patient was admitted from nursing facility for agitation . Patient with 1-2+ edema, on lasix. Per nursing notes, patient easily agitated, aggressive and unpredictable, sometimes striking, hitting and spitting. Patient was seen in Radha chair in dining room at time of visit. Per CLINICAL SECRETARY, he [id number]% of meals without difficulty. Current Diet Order/ Nutrition Support mechanical soft, 45gm CCHO, nectar thick liquids, chopped, no added sodium Patient / S.O Not Indicated Pertinent Medications Lipitor, dulcolax, D50W, Lasix , glucagon, humalog, cozaar, MOM, Metformin, Theragran, klor-con Pertinent Labs (12/15) Glucose 187, Albumin 3. 7, TAG 215 Nutritional Hx/Data Height 1.7 m Height (Calculated Centimeters) 170.2 Current Weight (lbs) 83.915 kg Weight (Calculated Kilograms) 83.9 Weight (Calculated Grams) 93916.6 [place] Body Weight 148 % [place] Body Weight 125 Body Mass Index (BMI) 29.0 Recent Weight Change No Weight Status Overweight GI Symptoms GI Symptoms None Last BM 12/16 x 1 Difficult in: None Food Allergies No Cultural/Ethnic/Adventist Belief none indicated Usual diet at home unknown Skin Integrity/Comment: Moses 16, bruises, intact Current %PO Good (75-100%) Estimated Nutritional Goals BEE in Kcals: Using Current wt Calories/Kcals/Kg 84kg 22-27 kcal/kg Kcals Calculated ~0792-7327 kcal/day Protein: Using Current wt Protein g/k.8-1 gm/kg Protein Calculated ~65-85 gm/day Fluid: ml ~1563-0292 ml/day Nutritional Problem No current Nutrition Prob Problem No nutrition diagnosis at this time Intervention/Recommendation Comments 1. Modify diet to 60 gm CCHO to better meet nutrient needs. Continue No added sodium due to edema. Continue mechanical soft, chopped diet with nectar thick liquids as appropriate. Expected Outcomes/Goals Expected Outcomes/Goals Adequate nutrition to meet >75 % estimated needs, improved labs, skin remains intact, weight maintenance or trend toward ideal body weight. F/U LR 12/24
--- NOTE | 2018-12-23 20:15 | Progress Notes ---
DATE: 12/23/2018 SUBJECTIVE: The patient was seen, remains anxious, still irritable, still having some agitation and anger outburst. The patient, however, is taking his medications. His appetite and sleep are fair. ASSESSMENT: The patient is still forgetful and confused and still having some episodes of anger outburst. PLAN: Continue Seroquel 25 mg p.o. at bedtime. Continue stabilization. [facility]# [id number]
[2018-12-23] MEDS: Atorvastatin Calcium 10 MG TAB PO SCH (21:15)
[2018-12-24] MEDS: INSULIN LISPRO SLIDING SCALE 100 UNITS/ML UNIT SUBQ SCH ×4 (07:20→21:05)
--- NOTE | 2018-12-24 08:51 | Internal Medicine Prog Note ---
Internal Medicine Subjective - Subjective Patient seen and examined:: with staff, chart reviewed Patient is:: awake, verbal, interactive Per staff patient has:: no adverse event, no episodes of fall, poor appetite, tolerating meds Internal Medicine Objective - Results Result Diagrams: 12/15/18 21:00 12/15/18 21:00 Recent Labs: Laboratory Last Values WBC 8.0 Th/cmm (4.8-10.8) 12/15/18 21:00 RBC 4.72 Mil/cmm (3.80-5.80) 12/15/18 21:00 Hgb 13.4 gm/dL (12-16) 12/15/18 21:00 Hct 38.9 % (41.0-60) L 12/15/18 21:00 MCV 82.4 fl (80-99) 12/15/18 21:00 MCH 28.3 pg (27.0-31.0) 12/15/18 21:00 MCHC Differential 34.4 pg (28.0-36.0) 12/15/18 21:00 RDW 12.1 % (11.5-20.0) 12/15/18 21:00 Plt Count 310 Th/cmm (150-400) 12/15/18 21:00 MPV 7.5 fl 12/15/18 21:00 Neutrophils % 52.8 % (40.0-80.0) 12/15/18 21:00 Lymphocytes % 30.7 % (20.0-50.0) 12/15/18 21:00 Monocytes % 12.0 % (2.0-10.0) H 12/15/18 21:00 Eosinophils % 3.7 % (0.0-5.0) 12/15/18 21:00 Basophils % 0.8 % (0.0-2.0) 12/15/18 21:00 Sodium 137 mEq/L (136-145) 12/15/18 21:00 Potassium 3.8 mEq/L (3.5-5.1) 12/15/18 21:00 Chloride 101 mEq/L (98-107) 12/15/18 21:00 Carbon Dioxide 25.6 mEq/L (21.0-31.0) 12/15/18 21:00 Anion Gap 14.2 (7.0-16.0) 12/15/18 21:00 BUN 17 mg/dL (7-25) 12/15/18 21:00 Creatinine 0.9 mg/dL (0.7-1.3) 12/15/18 21:00 Est GFR ( Amer) TNP 12/15/18 21:00 Est GFR (Non-Af Amer) TNP 12/15/18 21:00 BUN/Creatinine Ratio 18.9 12/15/18 21:00 Glucose 187 mg/dL (70-105) H 12/15/18 21:00 Calcium 9.5 mg/dL (8.6-10.3) 12/15/18 21:00 Total Bilirubin 0.5 mg/dL (0.3-1.0) 12/15/18 21:00 AST 10 U/L (13-39) L 12/15/18 21:00 ALT 10 U/L (7-52) 12/15/18 21:00 Alkaline Phosphatase 61 U/L (34-104) 12/15/18 21:00 Troponin I 0.01 ng/mL (0.01-0.05) 12/15/18 21:00 Total Protein 6.3 gm/dL (6.0-8.3) 12/15/18 21:00 Albumin 3.7 gm/dL (4.2-5.5) L 12/15/18 21:00 Globulin 2.6 gm/dL 12/15/18 21:00 Albumin/Globulin Ratio 1.4 (1.0-1.8) 12/15/18 21:00 Triglycerides 215 mg/dL (<150) H 12/15/18 21:00 Cholesterol 140 mg/dL (<200) 12/15/18 21:00 LDL Cholesterol Direct 92 mg/dL (75-193) 12/15/18 21:00 HDL Cholesterol 32 mg/dL (23-92) 12/15/18 21:00 TSH 3.45 uIU/ml (0.34-5.60) 12/15/18 21:00 RPR NONREACTIVE (NONREACTIVE) 12/15/18 21:00 - Physical Exam Vitals and I&O: Vital Signs Temp 98.8 F 12/24/18 06:09 Pulse 77 12/24/18 06:09 Resp 19 12/24/18 06:09 BP 158/81 07/27/19 06:09 Pulse Ox 97 12/24/18 06:09 Intake & Output 12/23/18 12/24/18 12/24/18 18:59 06:59 18:59 Intake Total 950 1200 Balance 950 1200 Intake: Oral 950 1200 Other: # Voids 4 3 # Bowel Movements 0 0 Active Medications: Current Medications Acetaminophen (Tylenol) 650 mg PO Q6HR PRN PRN Reason: Pain or Fever >101 Stop: 02/14/19 12:23 Last Admin: 12/19/18 20:15 Dose: 650 mg Aspirin (Aspirin Chewable) 81 mg PO DAILY [facility] Stop: 02/15/19 08:59 Last Admin: 12/23/18 08:54 Dose: 81 mg Atorvastatin Calcium (Lipitor) 10 mg PO HS [facility]; Protocol Stop: 02/14/19 20:59 Last Admin: 12/23/18 21:15 Dose: 10 mg Bisacodyl (Dulcolax 10 Mg Supp) 10 mg RC DAILY PRN PRN Reason: Constipation Stop: 02/14/19 12:23 Dextrose (Glutose 40%) 18.75 gm PO PRN PRN PRN Reason: BS Below 70 & tolerate po Stop: 02/14/19 12:24 Diltiazem HCl (Cardizem Cd) 240 mg PO DAILY [facility] Stop: 02/15/19 08:59 Last Admin: 12/23/18 08:54 Dose: 240 mg Furosemide (Lasix) 20 mg PO BID [facility] Stop: 02/14/19 16:59 Last Admin: 12/23/18 17:15 Dose: 20 mg Glucagon (Glucagen) 1 mg IM PRN PRN PRN Reason: BS Below 70 & not tolerate po Stop: 02/14/19 12:24 Insulin Human Lispro (Humalog Insulin Sliding Scale) 0 units SUBQ ACHS [facility]; Protocol Stop: 02/14/19 16:29 Last Admin: 12/24/18 07:20 Dose: Not Given Lorazepam (Ativan) 0.5 mg PO Q4H PRN; Protocol PRN Reason: Anxiety Stop: 02/14/19 00:10 Last Admin: 12/23/18 21:16 Dose: 0.5 mg Losartan Potassium (Cozaar) 25 mg PO DAILY [facility] Stop: 02/15/19 08:59 Last Admin: 12/23/18 08:53 Dose: 25 mg Magnesium Hydroxide (Milk Of Magnesia) 30 ml PO DAILY PRN PRN Reason: Constipation Stop: 02/14/19 12:23 Metformin HCl (Glucophage) 500 mg PO BIDWM [facility] Stop: 02/14/19 17:59 Last Admin: 12/23/18 17:15 Dose: 500 mg Multivitamins/Vitamin C (Theragran) 1 tab PO DAILY [facility] Stop: 02/15/19 08:59 Last Admin: 12/23/18 08:56 Dose: 1 tab Potassium Chloride (Klor-Con) 10 meq PO DAILY [facility] Stop: 02/15/19 08:59 Last Admin: 12/23/18 08:54 Dose: 10 meq Quetiapine Fumarate (Seroquel) 25 mg PO HS [facility]; Protocol Stop: 02/19/19 20:59 Last Admin: 12/23/18 21:19 Dose: 25 mg Rivastigmine Tartrate (Exelon) 1.5 mg PO BIDWM [facility] Stop: 02/14/19 17:59 Last Admin: 12/23/18 17:15 Dose: 1.5 mg Tamsulosin HCl (Flomax) 0.4 mg PO DAILY [facility] Stop: 02/15/19 08:59 Last Admin: 12/23/18 08:51 Dose: 0.4 mg General: alert, obese HEENT: NC/AT, PERRLA Neck: Supple Lungs: CTAB Cardiovascular: RRR, Normal S1, Normal S2 Abdomen: soft, non-tender, non-distended, positive bowel sound Extremities: excoriation, contracture Neurological: disorganized Internal Medicine Assmt/Plan - Assessment Assessment: ASSESSMENT AND PLAN: Anemia, diabetes, hypertension, gastroesophageal reflux disease, benign prostatic hypertrophy, paroxysmal atrial fibrillation, Alzheimer dementia, and hyperglycemia. - Plan Plan: PLAN: Continue the patient on ADA diet and insulin sliding scale. Continue metformin. Continue current antihypertensive medication. We will place him on fall precautions. Continue with current care. We will continue to follow with the patient with Dr. Ifeanyi to. Nutritional Asmnt/Malnutr-PDOC - Dietary Evaluation Malnutrition Findings (Please click <Entered> for more info): Nutritional Asmnt/Malnutrition Start: 12/16/18 08: 21 Text: Status: Complete Freq: Protocol: Document 12/17/18 10:01 ELLE (Rec: 12/17/18 10:22 ELLE ROSI- [email or web address]) Nutritional Asmnt/Malnutrition Patient General Information Nutritional Screening Moderate Risk Diagnosis Psychosis Pertinent Medical Hx/Surgical Hx HTN, Diabetes, GERD, BPH, paroxysomal atrial fibrillation, Alzheimer dementia, high cholesterol Subjective Information Patient was admitted from nursing facility for agitation . Patient with 1-2+ edema, on lasix. Per nursing notes, patient easily agitated, aggressive and unpredictable, sometimes striking, hitting and spitting. Patient was seen in Radha chair in dining room at time of visit. Per DESPATCHING AND RECEIVING CLERK, he [id number]% of meals without difficulty. Current Diet Order/ Nutrition Support mechanical soft, 45gm CCHO, nectar thick liquids, chopped, no added sodium Patient / S.O Not Indicated Pertinent Medications Lipitor, dulcolax, D50W, Lasix , glucagon, humalog, cozaar, MOM, Metformin, Theragran, klor-con Pertinent Labs (12/15) Glucose 187, Albumin 3. 7, TAG 215 Nutritional Hx/Data Height 1.7 m Height (Calculated Centimeters) 170.2 Current Weight (lbs) 83.915 kg Weight (Calculated Kilograms) 83.9 Weight (Calculated Grams) 59911.6 [place] Body Weight 148 % [place] Body Weight 125 Body Mass Index (BMI) 29.0 Recent Weight Change No Weight Status Overweight GI Symptoms GI Symptoms None Last BM 12/16 x 1 Difficult in: None Food Allergies No Cultural/Ethnic/Christian Belief none indicated Usual diet at home unknown Skin Integrity/Comment: Moses 16, bruises, intact Current %PO Good (75-100%) Estimated Nutritional Goals BEE in Kcals: Using Current wt Calories/Kcals/Kg 84kg 22-27 kcal/kg Kcals Calculated ~3059-3955 kcal/day Protein: Using Current wt Protein g/k.8-1 gm/kg Protein Calculated ~65-85 gm/day Fluid: ml ~0361-3356 ml/day Nutritional Problem No current Nutrition Prob Problem No nutrition diagnosis at this time Intervention/Recommendation Comments 1. Modify diet to 60 gm CCHO to better meet nutrient needs. Continue No added sodium due to edema. Continue mechanical soft, chopped diet with nectar thick liquids as appropriate. Expected Outcomes/Goals Expected Outcomes/Goals Adequate nutrition to meet >75 % estimated needs, improved labs, skin remains intact, weight maintenance or trend toward ideal body weight. F/U LR 12/24
[2018-12-24] MEDS: Multivitamin Tab PO SCH (08:57)
[2018-12-24] MEDS: Potassium Chloride 10 mEq ER Tab PO SCH (08:58)
[2018-12-24] MEDS: Aspirin 81mg Chewable Tab PO SCH (08:58)
[2018-12-24] MEDS: Diltiazem CD 120 mg 24H PO SCH (09:01)
--- NOTE | 2018-12-24 11:32 | Progress Notes ---
DATE: 12/23/2018 PSYCHOLOGY PROGRESS NOTE SUBJECTIVE: The patient is seen and is interviewed. Case is discussed with staff. The patient continues to present as irritable. Staff reports the patient continues to have intermittent anger outbursts. The patient is taking his p.o. medications. The patient states that he does not need to be hospitalized. The patient is demanding to be discharged. The patient continues to present as confused and anxious. OBJECTIVE: Mood is irritable and anxious. Affect is mood congruent. Thought process shows to be confused. Memory impairment persists. The patient denied any hallucinations or delusions. The patient's behavior continues to be agitated with anger outbursts. ASSESSMENT AND PLAN: The patient's impulse control continues to be problematic. The patient continues to be confused with intermittent anger outbursts. We provided de-escalation and limit setting. We provided boundary construction to include boundary awareness and definitions. We encouraged the patient to demonstrate emotional and self-regulation by verbalizing his concerns versus acting out. We will provide a simple anger management skill. We provided coping strategies for phase of life issues. We provided remotivation for the patient to become compliant with his care and treatment. We provided reality orientation and integration as well. We will follow up in 2 days to continue the present treatment if the patient remains admitted on the unit. JOB# [id number] JASPREET
[2018-12-24] MEDS: Atorvastatin Calcium 10 MG TAB PO SCH (21:05)
[2018-12-25] MEDS: INSULIN LISPRO SLIDING SCALE 100 UNITS/ML UNIT SUBQ SCH ×4 (06:34→21:20)
--- NOTE | 2018-12-25 09:13 | Progress Notes ---
DATE: 12/24/2018 SUBJECTIVE: The patient was seen, remains anxious, restless, still irritable at times, some episodes of yelling. On the other hand, he is taking his medications. His appetite and sleep are fair. Insight is still limited. Judgment impaired. PLAN: We will continue stabilization. Continue medication management. Continue Seroquel 25 mg p.o. at bedtime. Consider increasing dose to 37.5 mg p.o. at bedtime. [facility]# [id number]
[2018-12-25] MEDS: Multivitamin Tab PO SCH (09:57)
[2018-12-25] MEDS: Diltiazem CD 120 mg 24H PO SCH (10:38)
[2018-12-25] MEDS: Potassium Chloride 10 mEq ER Tab PO SCH (10:39)
[2018-12-25] MEDS: Aspirin 81mg Chewable Tab PO SCH (10:39)
--- NOTE | 2018-12-25 11:33 | Internal Medicine Prog Note ---
Internal Medicine Subjective - Subjective Patient seen and examined:: with staff, chart reviewed Patient is:: awake, verbal, interactive Per staff patient has:: no adverse event, no episodes of fall, poor appetite, tolerating meds Internal Medicine Objective - Results Result Diagrams: 12/15/18 21:00 12/15/18 21:00 Recent Labs: Laboratory Last Values WBC 8.0 Th/cmm (4.8-10.8) 12/15/18 21:00 RBC 4.72 Mil/cmm (3.80-5.80) 12/15/18 21:00 Hgb 13.4 gm/dL (12-16) 12/15/18 21:00 Hct 38.9 % (41.0-60) L 12/15/18 21:00 MCV 82.4 fl (80-99) 12/15/18 21:00 MCH 28.3 pg (27.0-31.0) 12/15/18 21:00 MCHC Differential 34.4 pg (28.0-36.0) 12/15/18 21:00 RDW 12.1 % (11.5-20.0) 12/15/18 21:00 Plt Count 310 Th/cmm (150-400) 12/15/18 21:00 MPV 7.5 fl 12/15/18 21:00 Neutrophils % 52.8 % (40.0-80.0) 12/15/18 21:00 Lymphocytes % 30.7 % (20.0-50.0) 12/15/18 21:00 Monocytes % 12.0 % (2.0-10.0) H 12/15/18 21:00 Eosinophils % 3.7 % (0.0-5.0) 12/15/18 21:00 Basophils % 0.8 % (0.0-2.0) 12/15/18 21:00 Sodium 137 mEq/L (136-145) 12/15/18 21:00 Potassium 3.8 mEq/L (3.5-5.1) 12/15/18 21:00 Chloride 101 mEq/L (98-107) 12/15/18 21:00 Carbon Dioxide 25.6 mEq/L (21.0-31.0) 12/15/18 21:00 Anion Gap 14.2 (7.0-16.0) 12/15/18 21:00 BUN 17 mg/dL (7-25) 12/15/18 21:00 Creatinine 0.9 mg/dL (0.7-1.3) 12/15/18 21:00 Est GFR ( Amer) TNP 12/15/18 21:00 Est GFR (Non-Af Amer) TNP 12/15/18 21:00 BUN/Creatinine Ratio 18.9 12/15/18 21:00 Glucose 187 mg/dL (70-105) H 12/15/18 21:00 Calcium 9.5 mg/dL (8.6-10.3) 12/15/18 21:00 Total Bilirubin 0.5 mg/dL (0.3-1.0) 12/15/18 21:00 AST 10 U/L (13-39) L 12/15/18 21:00 ALT 10 U/L (7-52) 12/15/18 21:00 Alkaline Phosphatase 61 U/L (34-104) 12/15/18 21:00 Troponin I 0.01 ng/mL (0.01-0.05) 12/15/18 21:00 Total Protein 6.3 gm/dL (6.0-8.3) 12/15/18 21:00 Albumin 3.7 gm/dL (4.2-5.5) L 12/15/18 21:00 Globulin 2.6 gm/dL 12/15/18 21:00 Albumin/Globulin Ratio 1.4 (1.0-1.8) 12/15/18 21:00 Triglycerides 215 mg/dL (<150) H 12/15/18 21:00 Cholesterol 140 mg/dL (<200) 12/15/18 21:00 LDL Cholesterol Direct 92 mg/dL (75-193) 12/15/18 21:00 HDL Cholesterol 32 mg/dL (23-92) 12/15/18 21:00 TSH 3.45 uIU/ml (0.34-5.60) 12/15/18 21:00 RPR NONREACTIVE (NONREACTIVE) 12/15/18 21:00 - Physical Exam Vitals and I&O: Vital Signs Temp 97.1 F 12/25/18 06:17 Pulse 64 12/25/18 10:40 Resp 19 12/25/18 06:17 BP 127/63 07/28/19 10:40 Pulse Ox 98 12/25/18 06:17 Intake & Output 12/24/18 12/25/18 12/25/18 18:59 06:59 18:59 Intake Total 800 280 Balance 800 280 Intake: Oral 800 280 Other: # Voids 3 # Bowel Movements 0 Active Medications: Current Medications Acetaminophen (Tylenol) 650 mg PO Q6HR PRN PRN Reason: Pain or Fever >101 Stop: 02/14/19 12:23 Last Admin: 12/19/18 20:15 Dose: 650 mg Aspirin (Aspirin Chewable) 81 mg PO DAILY [facility] Stop: 02/15/19 08:59 Last Admin: 12/25/18 10:39 Dose: Not Given Atorvastatin Calcium (Lipitor) 10 mg PO HS [facility]; Protocol Stop: 02/14/19 20:59 Last Admin: 12/24/18 21:05 Dose: 10 mg Bisacodyl (Dulcolax 10 Mg Supp) 10 mg RC DAILY PRN PRN Reason: Constipation Stop: 02/14/19 12:23 Dextrose (Glutose 40%) 18.75 gm PO PRN PRN PRN Reason: BS Below 70 & tolerate po Stop: 02/14/19 12:24 Diltiazem HCl (Cardizem Cd) 240 mg PO DAILY [facility] Stop: 02/15/19 08:59 Last Admin: 12/25/18 10:38 Dose: Not Given Furosemide (Lasix) 20 mg PO BID [facility] Stop: 02/14/19 16:59 Last Admin: 12/25/18 10:39 Dose: Not Given Glucagon (Glucagen) 1 mg IM PRN PRN PRN Reason: BS Below 70 & not tolerate po Stop: 02/14/19 12:24 Insulin Human Lispro (Humalog Insulin Sliding Scale) 0 units SUBQ ACHS [facility]; Protocol Stop: 02/14/19 16:29 Last Admin: 12/25/18 06:34 Dose: Not Given Lorazepam (Ativan) 0.5 mg PO Q4H PRN; Protocol PRN Reason: Anxiety Stop: 02/14/19 00:10 Last Admin: 12/25/18 10:38 Dose: 0.5 mg Losartan Potassium (Cozaar) 25 mg PO DAILY [facility] Stop: 02/15/19 08:59 Last Admin: 12/25/18 10:40 Dose: Not Given Magnesium Hydroxide (Milk Of Magnesia) 30 ml PO DAILY PRN PRN Reason: Constipation Stop: 02/14/19 12:23 Metformin HCl (Glucophage) 500 mg PO BIDWM [facility] Stop: 02/14/19 17:59 Last Admin: 12/25/18 10:39 Dose: Not Given Multivitamins/Vitamin C (Theragran) 1 tab PO DAILY [facility] Stop: 02/15/19 08:59 Last Admin: 12/25/18 09:57 Dose: Not Given Potassium Chloride (Klor-Con) 10 meq PO DAILY [facility] Stop: 02/15/19 08:59 Last Admin: 12/25/18 10:39 Dose: Not Given Quetiapine Fumarate (Seroquel) 37.5 mg PO HS [facility]; Protocol Stop: 02/22/19 20:59 Last Admin: 12/24/18 21:06 Dose: 37.5 mg Rivastigmine Tartrate (Exelon) 1.5 mg PO BIDWM [facility] Stop: 02/14/19 17:59 Last Admin: 12/25/18 10:39 Dose: Not Given Tamsulosin HCl (Flomax) 0.4 mg PO DAILY [facility] Stop: 02/15/19 08:59 Last Admin: 12/25/18 10:39 Dose: Not Given General: alert, obese HEENT: NC/AT, PERRLA Neck: Supple Lungs: CTAB Cardiovascular: RRR, Normal S1, Normal S2 Abdomen: soft, non-tender, non-distended, positive bowel sound Extremities: excoriation, contracture Neurological: disorganized Internal Medicine Assmt/Plan - Assessment Assessment: ASSESSMENT AND PLAN: Anemia, diabetes, hypertension, gastroesophageal reflux disease, benign prostatic hypertrophy, paroxysmal atrial fibrillation, Alzheimer dementia, and hyperglycemia. - Plan Plan: PLAN: Continue the patient on ADA diet and insulin sliding scale. Continue metformin. Continue current antihypertensive medication. We will place him on fall precautions. Continue with current care. We will continue to follow with the patient with youDr. Suggs. Nutritional Asmnt/Malnutr-PDOC - Dietary Evaluation Malnutrition Findings (Please click <Entered> for more info): Nutritional Asmnt/Malnutrition Start: 12/16/18 08: 21 Text: Status: Complete Freq: Protocol: Document 12/17/18 10:01 ELLE (Rec: 12/17/18 10:22 ELLE ROSI- [email or web address]) Nutritional Asmnt/Malnutrition Patient General Information Nutritional Screening Moderate Risk Diagnosis Psychosis Pertinent Medical Hx/Surgical Hx HTN, Diabetes, GERD, BPH, paroxysomal atrial fibrillation, Alzheimer dementia, high cholesterol Subjective Information Patient was admitted from nursing facility for agitation . Patient with 1-2+ edema, on lasix. Per nursing notes, patient easily agitated, aggressive and unpredictable, sometimes striking, hitting and spitting. Patient was seen in Radha chair in dining room at time of visit. Per READING INTERVENTION TEACHER, he [id number]% of meals without difficulty. Current Diet Order/ Nutrition Support mechanical soft, 45gm CCHO, nectar thick liquids, chopped, no added sodium Patient / S.O Not Indicated Pertinent Medications Lipitor, dulcolax, D50W, Lasix , glucagon, humalog, cozaar, MOM, Metformin, Theragran, klor-con Pertinent Labs (12/15) Glucose 187, Albumin 3. 7, TAG 215 Nutritional Hx/Data Height 1.7 m Height (Calculated Centimeters) 170.2 Current Weight (lbs) 83.915 kg Weight (Calculated Kilograms) 83.9 Weight (Calculated Grams) 13958.6 [place] Body Weight 148 % [place] Body Weight 125 Body Mass Index (BMI) 29.0 Recent Weight Change No Weight Status Overweight GI Symptoms GI Symptoms None Last BM 12/16 x 1 Difficult in: None Food Allergies No Cultural/Ethnic/Sabianism Belief none indicated Usual diet at home unknown Skin Integrity/Comment: Moses 16, bruises, intact Current %PO Good (75-100%) Estimated Nutritional Goals BEE in Kcals: Using Current wt Calories/Kcals/Kg 84kg 22-27 kcal/kg Kcals Calculated ~0976-9892 kcal/day Protein: Using Current wt Protein g/k.8-1 gm/kg Protein Calculated ~65-85 gm/day Fluid: ml ~7051-9076 ml/day Nutritional Problem No current Nutrition Prob Problem No nutrition diagnosis at this time Intervention/Recommendation Comments 1. Modify diet to 60 gm CCHO to better meet nutrient needs. Continue No added sodium due to edema. Continue mechanical soft, chopped diet with nectar thick liquids as appropriate. Expected Outcomes/Goals Expected Outcomes/Goals Adequate nutrition to meet >75 % estimated needs, improved labs, skin remains intact, weight maintenance or trend toward ideal body weight. F/U LR 12/24
[2018-12-25] MEDS: Atorvastatin Calcium 10 MG TAB PO SCH (21:20)
[2018-12-26] MEDS: INSULIN LISPRO SLIDING SCALE 100 UNITS/ML UNIT SUBQ SCH ×4 (06:38→20:38)
[2018-12-26] MEDS: Diltiazem CD 120 mg 24H PO SCH (11:54)
[2018-12-26] MEDS: Multivitamin Tab PO SCH (11:54)
[2018-12-26] MEDS: Aspirin 81mg Chewable Tab PO SCH (11:54)
[2018-12-26] MEDS: Potassium Chloride 10 mEq ER Tab PO SCH (11:54)
--- NOTE | 2018-12-26 11:55 | Progress Notes ---
DATE: 12/25/2018 SUBJECTIVE: The patient was seen less anxious, but still irritable at times. The patient continues to have some episodes of yelling. The patient is taking his medication. His appetite and sleep are fair. The patient's Seroquel dose was increased and so far he has no sedation or EPS. PLAN: We will continue supportive measures, continue stabilization. Continue hospitalization. The patient has still some agitation and anger outburst. ESTIMATED LENGTH OF STAY: 1-3 days. [facility]# [id number]
--- NOTE | 2018-12-26 13:12 | Internal Medicine Prog Note ---
Internal Medicine Subjective - Subjective Patient seen and examined:: with staff, chart reviewed Patient is:: awake, verbal, interactive Per staff patient has:: no adverse event, no episodes of fall, poor appetite, tolerating meds Internal Medicine Objective - Results Result Diagrams: 12/15/18 21:00 12/15/18 21:00 Recent Labs: Laboratory Last Values WBC 8.0 Th/cmm (4.8-10.8) 12/15/18 21:00 RBC 4.72 Mil/cmm (3.80-5.80) 12/15/18 21:00 Hgb 13.4 gm/dL (12-16) 12/15/18 21:00 Hct 38.9 % (41.0-60) L 12/15/18 21:00 MCV 82.4 fl (80-99) 12/15/18 21:00 MCH 28.3 pg (27.0-31.0) 12/15/18 21:00 MCHC Differential 34.4 pg (28.0-36.0) 12/15/18 21:00 RDW 12.1 % (11.5-20.0) 12/15/18 21:00 Plt Count 310 Th/cmm (150-400) 12/15/18 21:00 MPV 7.5 fl 12/15/18 21:00 Neutrophils % 52.8 % (40.0-80.0) 12/15/18 21:00 Lymphocytes % 30.7 % (20.0-50.0) 12/15/18 21:00 Monocytes % 12.0 % (2.0-10.0) H 12/15/18 21:00 Eosinophils % 3.7 % (0.0-5.0) 12/15/18 21:00 Basophils % 0.8 % (0.0-2.0) 12/15/18 21:00 Sodium 137 mEq/L (136-145) 12/15/18 21:00 Potassium 3.8 mEq/L (3.5-5.1) 12/15/18 21:00 Chloride 101 mEq/L (98-107) 12/15/18 21:00 Carbon Dioxide 25.6 mEq/L (21.0-31.0) 12/15/18 21:00 Anion Gap 14.2 (7.0-16.0) 12/15/18 21:00 BUN 17 mg/dL (7-25) 12/15/18 21:00 Creatinine 0.9 mg/dL (0.7-1.3) 12/15/18 21:00 Est GFR ( Amer) TNP 12/15/18 21:00 Est GFR (Non-Af Amer) TNP 12/15/18 21:00 BUN/Creatinine Ratio 18.9 12/15/18 21:00 Glucose 187 mg/dL (70-105) H 12/15/18 21:00 Calcium 9.5 mg/dL (8.6-10.3) 12/15/18 21:00 Total Bilirubin 0.5 mg/dL (0.3-1.0) 12/15/18 21:00 AST 10 U/L (13-39) L 12/15/18 21:00 ALT 10 U/L (7-52) 12/15/18 21:00 Alkaline Phosphatase 61 U/L (34-104) 12/15/18 21:00 Troponin I 0.01 ng/mL (0.01-0.05) 12/15/18 21:00 Total Protein 6.3 gm/dL (6.0-8.3) 12/15/18 21:00 Albumin 3.7 gm/dL (4.2-5.5) L 12/15/18 21:00 Globulin 2.6 gm/dL 12/15/18 21:00 Albumin/Globulin Ratio 1.4 (1.0-1.8) 12/15/18 21:00 Triglycerides 215 mg/dL (<150) H 12/15/18 21:00 Cholesterol 140 mg/dL (<200) 12/15/18 21:00 LDL Cholesterol Direct 92 mg/dL (75-193) 12/15/18 21:00 HDL Cholesterol 32 mg/dL (23-92) 12/15/18 21:00 TSH 3.45 uIU/ml (0.34-5.60) 12/15/18 21:00 RPR NONREACTIVE (NONREACTIVE) 12/15/18 21:00 - Physical Exam Vitals and I&O: Vital Signs Temp 97 F 12/26/18 06:34 Pulse 77 12/26/18 06:34 Resp 19 12/26/18 06:34 BP 152/77 12/26/18 06:34 Pulse Ox 100 12/26/18 06:34 Intake & Output 12/25/18 12/26/18 12/26/18 18:59 06:59 18:59 Intake Total 900 240 Balance 900 240 Intake: Oral 900 240 Other: # Voids 3 1 # Bowel Movements 1 Active Medications: Current Medications Acetaminophen (Tylenol) 650 mg PO Q6HR PRN PRN Reason: Pain or Fever >101 Stop: 02/14/19 12:23 Last Admin: 12/19/18 20:15 Dose: 650 mg Aspirin (Aspirin Chewable) 81 mg PO DAILY [facility]IANA Stop: 02/15/19 08:59 Last Admin: 12/26/18 11:54 Dose: Not Given Atorvastatin Calcium (Lipitor) 10 mg PO HS [facility]; Protocol Stop: 02/14/19 20:59 Last Admin: 12/25/18 21:20 Dose: 10 mg Bisacodyl (Dulcolax 10 Mg Supp) 10 mg RC DAILY PRN PRN Reason: Constipation Stop: 02/14/19 12:23 Dextrose (Glutose 40%) 18.75 gm PO PRN PRN PRN Reason: BS Below 70 & tolerate po Stop: 02/14/19 12:24 Diltiazem HCl (Cardizem Cd) 240 mg PO DAILY [facility] Stop: 02/15/19 08:59 Last Admin: 12/26/18 11:54 Dose: Not Given Furosemide (Lasix) 20 mg PO BID [facility] Stop: 02/14/19 16:59 Last Admin: 12/26/18 11:54 Dose: Not Given Glucagon (Glucagen) 1 mg IM PRN PRN PRN Reason: BS Below 70 & not tolerate po Stop: 02/14/19 12:24 Insulin Human Lispro (Humalog Insulin Sliding Scale) 0 units SUBQ ACHS [facility]IANA; Protocol Stop: 02/14/19 16:29 Last Admin: 12/26/18 11:55 Dose: Not Given Lorazepam (Ativan) 0.5 mg PO Q4H PRN; Protocol PRN Reason: Anxiety Stop: 02/14/19 00:10 Last Admin: 12/25/18 21:22 Dose: 0.5 mg Losartan Potassium (Cozaar) 25 mg PO DAILY [facility] Stop: 02/15/19 08:59 Last Admin: 12/26/18 11:54 Dose: Not Given Magnesium Hydroxide (Milk Of Magnesia) 30 ml PO DAILY PRN PRN Reason: Constipation Stop: 02/14/19 12:23 Metformin HCl (Glucophage) 500 mg PO BIDWM [facility] Stop: 02/14/19 17:59 Last Admin: 12/26/18 11:55 Dose: Not Given Multivitamins/Vitamin C (Theragran) 1 tab PO DAILY [facility] Stop: 02/15/19 08:59 Last Admin: 12/26/18 11:54 Dose: Not Given Potassium Chloride (Klor-Con) 10 meq PO DAILY [facility] Stop: 02/15/19 08:59 Last Admin: 12/26/18 11:54 Dose: Not Given Quetiapine Fumarate (Seroquel) 37.5 mg PO HS [facility]; Protocol Stop: 02/22/19 20:59 Last Admin: 12/25/18 21:21 Dose: 37.5 mg Rivastigmine Tartrate (Exelon) 1.5 mg PO BIDWM [facility] Stop: 02/14/19 17:59 Last Admin: 12/26/18 11:55 Dose: Not Given Tamsulosin HCl (Flomax) 0.4 mg PO DAILY [facility] Stop: 02/15/19 08:59 Last Admin: 12/26/18 11:55 Dose: Not Given General: alert, obese HEENT: NC/AT, PERRLA Neck: Supple Lungs: CTAB Cardiovascular: RRR, Normal S1, Normal S2 Abdomen: soft, non-tender, non-distended, positive bowel sound Extremities: excoriation, contracture Neurological: disorganized Internal Medicine Assmt/Plan - Assessment Assessment: ASSESSMENT AND PLAN: Anemia, diabetes, hypertension, gastroesophageal reflux disease, benign prostatic hypertrophy, paroxysmal atrial fibrillation, Alzheimer dementia, and hyperglycemia. - Plan Plan: PLAN: Continue the patient on ADA diet and insulin sliding scale. Continue metformin. Continue current antihypertensive medication. We will place him on fall precautions. Continue with current care. We will continue to follow with the patient with Dr. Ifeanyi to. Nutritional Asmnt/Malnutr-PDOC - Dietary Evaluation Malnutrition Findings (Please click <Entered> for more info): Nutritional Asmnt/Malnutrition Start: 12/16/18 08: 21 Text: Status: Complete Freq: Protocol: Document 12/17/18 10:01 ELLE (Rec: 12/17/18 10:22 ELLE ROSI- [email or web address]) Nutritional Asmnt/Malnutrition Patient General Information Nutritional Screening Moderate Risk Diagnosis Psychosis Pertinent Medical Hx/Surgical Hx HTN, Diabetes, GERD, BPH, paroxysomal atrial fibrillation, Alzheimer dementia, high cholesterol Subjective Information Patient was admitted from nursing facility for agitation . Patient with 1-2+ edema, on lasix. Per nursing notes, patient easily agitated, aggressive and unpredictable, sometimes striking, hitting and spitting. Patient was seen in Radha chair in dining room at time of visit. Per RECEPTION AGENT, he [id number]% of meals without difficulty. Current Diet Order/ Nutrition Support mechanical soft, 45gm CCHO, nectar thick liquids, chopped, no added sodium Patient / S.O Not Indicated Pertinent Medications Lipitor, dulcolax, D50W, Lasix , glucagon, humalog, cozaar, MOM, Metformin, Theragran, klor-con Pertinent Labs (12/15) Glucose 187, Albumin 3. 7, TAG 215 Nutritional Hx/Data Height 1.7 m Height (Calculated Centimeters) 170.2 Current Weight (lbs) 83.915 kg Weight (Calculated Kilograms) 83.9 Weight (Calculated Grams) 65444.6 [place] Body Weight 148 % [place] Body Weight 125 Body Mass Index (BMI) 29.0 Recent Weight Change No Weight Status Overweight GI Symptoms GI Symptoms None Last BM 12/16 x 1 Difficult in: None Food Allergies No Cultural/Ethnic/Sabianist Belief none indicated Usual diet at home unknown Skin Integrity/Comment: Moses 16, bruises, intact Current %PO Good (75-100%) Estimated Nutritional Goals BEE in Kcals: Using Current wt Calories/Kcals/Kg 84kg 22-27 kcal/kg Kcals Calculated ~4057-4288 kcal/day Protein: Using Current wt Protein g/k.8-1 gm/kg Protein Calculated ~65-85 gm/day Fluid: ml ~8302-8147 ml/day Nutritional Problem No current Nutrition Prob Problem No nutrition diagnosis at this time Intervention/Recommendation Comments 1. Modify diet to 60 gm CCHO to better meet nutrient needs. Continue No added sodium due to edema. Continue mechanical soft, chopped diet with nectar thick liquids as appropriate. Expected Outcomes/Goals Expected Outcomes/Goals Adequate nutrition to meet >75 % estimated needs, improved labs, skin remains intact, weight maintenance or trend toward ideal body weight. F/U LR 12/24
[2018-12-26] MEDS: Atorvastatin Calcium 10 MG TAB PO SCH (20:38)
--- NOTE | 2018-12-26 22:16 | Progress Notes ---
DATE: 12/26/2018 SUBJECTIVE: The patient was seen, denied feeling depressed. The patient with fair sleep and appetite. The patient is taking his medications. He has had some anger outburst episodes of yelling. The patient, however, has not been physically aggressive. ASSESSMENT: We will continue hospitalization. Continue stabilization. Continue medication management. ESTIMATED LENGTH OF STAY: 1-3 days. [facility]# [id number]
[2018-12-27] MEDS: INSULIN LISPRO SLIDING SCALE 100 UNITS/ML UNIT SUBQ SCH ×4 (06:38→20:26)
[2018-12-27] MEDS: Potassium Chloride 10 mEq ER Tab PO SCH (08:57)
[2018-12-27] MEDS: Multivitamin Tab PO SCH (08:57)
[2018-12-27] MEDS: Aspirin 81mg Chewable Tab PO SCH (08:57)
[2018-12-27] MEDS: Diltiazem CD 120 mg 24H PO SCH (08:57)
--- NOTE | 2018-12-27 12:18 | Internal Medicine Prog Note ---
Internal Medicine Subjective - Subjective Patient seen and examined:: with staff, chart reviewed Patient is:: awake, verbal, interactive Per staff patient has:: no adverse event, no episodes of fall, poor appetite, tolerating meds Internal Medicine Objective - Results Result Diagrams: 12/15/18 21:00 12/15/18 21:00 Recent Labs: Laboratory Last Values WBC 8.0 Th/cmm (4.8-10.8) 12/15/18 21:00 RBC 4.72 Mil/cmm (3.80-5.80) 12/15/18 21:00 Hgb 13.4 gm/dL (12-16) 12/15/18 21:00 Hct 38.9 % (41.0-60) L 12/15/18 21:00 MCV 82.4 fl (80-99) 12/15/18 21:00 MCH 28.3 pg (27.0-31.0) 12/15/18 21:00 MCHC Differential 34.4 pg (28.0-36.0) 12/15/18 21:00 RDW 12.1 % (11.5-20.0) 12/15/18 21:00 Plt Count 310 Th/cmm (150-400) 12/15/18 21:00 MPV 7.5 fl 12/15/18 21:00 Neutrophils % 52.8 % (40.0-80.0) 12/15/18 21:00 Lymphocytes % 30.7 % (20.0-50.0) 12/15/18 21:00 Monocytes % 12.0 % (2.0-10.0) H 12/15/18 21:00 Eosinophils % 3.7 % (0.0-5.0) 12/15/18 21:00 Basophils % 0.8 % (0.0-2.0) 12/15/18 21:00 Sodium 137 mEq/L (136-145) 12/15/18 21:00 Potassium 3.8 mEq/L (3.5-5.1) 12/15/18 21:00 Chloride 101 mEq/L (98-107) 12/15/18 21:00 Carbon Dioxide 25.6 mEq/L (21.0-31.0) 12/15/18 21:00 Anion Gap 14.2 (7.0-16.0) 12/15/18 21:00 BUN 17 mg/dL (7-25) 12/15/18 21:00 Creatinine 0.9 mg/dL (0.7-1.3) 12/15/18 21:00 Est GFR ( Amer) TNP 12/15/18 21:00 Est GFR (Non-Af Amer) TNP 12/15/18 21:00 BUN/Creatinine Ratio 18.9 12/15/18 21:00 Glucose 187 mg/dL (70-105) H 12/15/18 21:00 Calcium 9.5 mg/dL (8.6-10.3) 12/15/18 21:00 Total Bilirubin 0.5 mg/dL (0.3-1.0) 12/15/18 21:00 AST 10 U/L (13-39) L 12/15/18 21:00 ALT 10 U/L (7-52) 12/15/18 21:00 Alkaline Phosphatase 61 U/L (34-104) 12/15/18 21:00 Troponin I 0.01 ng/mL (0.01-0.05) 12/15/18 21:00 Total Protein 6.3 gm/dL (6.0-8.3) 12/15/18 21:00 Albumin 3.7 gm/dL (4.2-5.5) L 12/15/18 21:00 Globulin 2.6 gm/dL 12/15/18 21:00 Albumin/Globulin Ratio 1.4 (1.0-1.8) 12/15/18 21:00 Triglycerides 215 mg/dL (<150) H 12/15/18 21:00 Cholesterol 140 mg/dL (<200) 12/15/18 21:00 LDL Cholesterol Direct 92 mg/dL (75-193) 12/15/18 21:00 HDL Cholesterol 32 mg/dL (23-92) 12/15/18 21:00 TSH 3.45 uIU/ml (0.34-5.60) 12/15/18 21:00 RPR NONREACTIVE (NONREACTIVE) 12/15/18 21:00 - Physical Exam Vitals and I&O: Vital Signs Temp 98.9 F 12/27/18 06:06 Pulse 75 12/27/18 08:57 Resp 20 12/27/18 06:06 BP 142/71 07/30/19 08:57 Pulse Ox 94 12/27/18 06:06 Intake & Output 12/26/18 12/27/18 12/27/18 18:59 06:59 18:59 Intake Total 800 180 Balance 800 180 Intake: Oral 800 180 Other: # Voids 3 2 # Bowel Movements 0 0 Active Medications: Current Medications Acetaminophen (Tylenol) 650 mg PO Q6HR PRN PRN Reason: Pain or Fever >101 Stop: 02/14/19 12:23 Last Admin: 12/19/18 20:15 Dose: 650 mg Aspirin (Aspirin Chewable) 81 mg PO DAILY [facility] Stop: 02/15/19 08:59 Last Admin: 12/27/18 08:57 Dose: 81 mg Atorvastatin Calcium (Lipitor) 10 mg PO HS [facility]; Protocol Stop: 02/14/19 20:59 Last Admin: 12/26/18 20:38 Dose: 10 mg Bisacodyl (Dulcolax 10 Mg Supp) 10 mg RC DAILY PRN PRN Reason: Constipation Stop: 02/14/19 12:23 Dextrose (Glutose 40%) 18.75 gm PO PRN PRN PRN Reason: BS Below 70 & tolerate po Stop: 02/14/19 12:24 Diltiazem HCl (Cardizem Cd) 240 mg PO DAILY [facility] Stop: 02/15/19 08:59 Last Admin: 12/27/18 08:57 Dose: 240 mg Furosemide (Lasix) 20 mg PO BID [facility] Stop: 02/14/19 16:59 Last Admin: 12/27/18 08:57 Dose: 20 mg Glucagon (Glucagen) 1 mg IM PRN PRN PRN Reason: BS Below 70 & not tolerate po Stop: 02/14/19 12:24 Insulin Human Lispro (Humalog Insulin Sliding Scale) 0 units SUBQ ACHS [facility]; Protocol Stop: 02/14/19 16:29 Last Admin: 12/27/18 06:38 Dose: Not Given Lorazepam (Ativan) 0.5 mg PO Q4H PRN; Protocol PRN Reason: Anxiety Stop: 02/14/19 00:10 Last Admin: 12/26/18 17:00 Dose: 0.5 mg Losartan Potassium (Cozaar) 25 mg PO DAILY [facility] Stop: 02/15/19 08:59 Last Admin: 12/27/18 08:57 Dose: 25 mg Magnesium Hydroxide (Milk Of Magnesia) 30 ml PO DAILY PRN PRN Reason: Constipation Stop: 02/14/19 12:23 Metformin HCl (Glucophage) 500 mg PO BIDWM [facility] Stop: 02/14/19 17:59 Last Admin: 12/27/18 08:57 Dose: 500 mg Multivitamins/Vitamin C (Theragran) 1 tab PO DAILY [facility] Stop: 02/15/19 08:59 Last Admin: 12/27/18 08:57 Dose: 1 tab Potassium Chloride (Klor-Con) 10 meq PO DAILY [facility] Stop: 02/15/19 08:59 Last Admin: 12/27/18 08:57 Dose: 10 meq Quetiapine Fumarate (Seroquel) 37.5 mg PO HS [facility]; Protocol Stop: 02/22/19 20:59 Last Admin: 12/26/18 20:40 Dose: 37.5 mg Rivastigmine Tartrate (Exelon) 1.5 mg PO BIDWM [facility] Stop: 02/14/19 17:59 Last Admin: 12/27/18 08:57 Dose: 1.5 mg Tamsulosin HCl (Flomax) 0.4 mg PO DAILY [facility] Stop: 02/15/19 08:59 Last Admin: 12/27/18 08:57 Dose: 0.4 mg General: alert, obese HEENT: NC/AT, PERRLA Neck: Supple Lungs: CTAB Cardiovascular: RRR, Normal S1, Normal S2 Abdomen: soft, non-tender, non-distended, positive bowel sound Extremities: excoriation, contracture Neurological: disorganized Internal Medicine Assmt/Plan - Assessment Assessment: ASSESSMENT AND PLAN: Anemia, diabetes, hypertension, gastroesophageal reflux disease, benign prostatic hypertrophy, paroxysmal atrial fibrillation, Alzheimer dementia, and hyperglycemia. - Plan Plan: PLAN: Continue the patient on ADA diet and insulin sliding scale. Continue metformin. Continue current antihypertensive medication. We will place him on fall precautions. Continue with current care. We will continue to follow with the patient with Dr. Ifeanyi to. Nutritional Asmnt/Malnutr-PDOC - Dietary Evaluation Malnutrition Findings (Please click <Entered> for more info): Nutritional Asmnt/Malnutrition Start: 12/16/18 08: 21 Text: Status: Complete Freq: Protocol: Document 12/17/18 10:01 ELLE (Rec: 12/17/18 10:22 ELLE ROSI- [email or web address]) Nutritional Asmnt/Malnutrition Patient General Information Nutritional Screening Moderate Risk Diagnosis Psychosis Pertinent Medical Hx/Surgical Hx HTN, Diabetes, GERD, BPH, paroxysomal atrial fibrillation, Alzheimer dementia, high cholesterol Subjective Information Patient was admitted from nursing facility for agitation . Patient with 1-2+ edema, on lasix. Per nursing notes, patient easily agitated, aggressive and unpredictable, sometimes striking, hitting and spitting. Patient was seen in Radha chair in dining room at time of visit. Per FABRICATION ENGINEER, he [id number]% of meals without difficulty. Current Diet Order/ Nutrition Support mechanical soft, 45gm CCHO, nectar thick liquids, chopped, no added sodium Patient / S.O Not Indicated Pertinent Medications Lipitor, dulcolax, D50W, Lasix , glucagon, humalog, cozaar, MOM, Metformin, Theragran, klor-con Pertinent Labs (12/15) Glucose 187, Albumin 3. 7, TAG 215 Nutritional Hx/Data Height 1.7 m Height (Calculated Centimeters) 170.2 Current Weight (lbs) 83.915 kg Weight (Calculated Kilograms) 83.9 Weight (Calculated Grams) 63969.6 [place] Body Weight 148 % [place] Body Weight 125 Body Mass Index (BMI) 29.0 Recent Weight Change No Weight Status Overweight GI Symptoms GI Symptoms None Last BM 12/16 x 1 Difficult in: None Food Allergies No Cultural/Ethnic/Shinto Belief none indicated Usual diet at home unknown Skin Integrity/Comment: Moses 16, bruises, intact Current %PO Good (75-100%) Estimated Nutritional Goals BEE in Kcals: Using Current wt Calories/Kcals/Kg 84kg 22-27 kcal/kg Kcals Calculated ~6315-6492 kcal/day Protein: Using Current wt Protein g/k.8-1 gm/kg Protein Calculated ~65-85 gm/day Fluid: ml ~5710-2508 ml/day Nutritional Problem No current Nutrition Prob Problem No nutrition diagnosis at this time Intervention/Recommendation Comments 1. Modify diet to 60 gm CCHO to better meet nutrient needs. Continue No added sodium due to edema. Continue mechanical soft, chopped diet with nectar thick liquids as appropriate. Expected Outcomes/Goals Expected Outcomes/Goals Adequate nutrition to meet >75 % estimated needs, improved labs, skin remains intact, weight maintenance or trend toward ideal body weight. F/U LR 12/24
[2018-12-27] MEDS: Atorvastatin Calcium 10 MG TAB PO SCH (20:27)
--- NOTE | 2018-12-27 21:52 | Progress Notes ---
DATE: 12/27/2018 SUBJECTIVE: The patient discussed with staff and denied feeling depressed and having some anxiety, irritability, some anger outburst. MENTAL STATUS EXAM: Speech is minimal, short sentences. Affect is dysphoric. The patient remains paranoid. No other hallucinations, oriented to person being in the hospital, not sure about his age. Insight still limited. ASSESSMENT: The patient continued to stabilize, anger outburst, agitation is decreasing and his appetite and sleep are fair. ESTIMATED LENGTH OF STAY: 1-2 more days. [facility]# [id number]
[2018-12-28] MEDS: INSULIN LISPRO SLIDING SCALE 100 UNITS/ML UNIT SUBQ SCH ×2 (06:41→11:21)
[2018-12-28] MEDS: Diltiazem CD 120 mg 24H PO SCH (09:19)
[2018-12-28] MEDS: Aspirin 81mg Chewable Tab PO SCH (09:19)
[2018-12-28] MEDS: Multivitamin Tab PO SCH (09:20)
[2018-12-28] MEDS: Potassium Chloride 10 mEq ER Tab PO SCH (09:20)
--- NOTE | 2018-12-28 12:38 | Internal Medicine Prog Note ---
Internal Medicine Subjective - Subjective Patient seen and examined:: with staff, chart reviewed Patient is:: awake, verbal, interactive Per staff patient has:: no adverse event, no episodes of fall, poor appetite, tolerating meds Internal Medicine Objective - Results Result Diagrams: 12/15/18 21:00 12/15/18 21:00 Recent Labs: Laboratory Last Values WBC 8.0 Th/cmm (4.8-10.8) 12/15/18 21:00 RBC 4.72 Mil/cmm (3.80-5.80) 12/15/18 21:00 Hgb 13.4 gm/dL (12-16) 12/15/18 21:00 Hct 38.9 % (41.0-60) L 12/15/18 21:00 MCV 82.4 fl (80-99) 12/15/18 21:00 MCH 28.3 pg (27.0-31.0) 12/15/18 21:00 MCHC Differential 34.4 pg (28.0-36.0) 12/15/18 21:00 RDW 12.1 % (11.5-20.0) 12/15/18 21:00 Plt Count 310 Th/cmm (150-400) 12/15/18 21:00 MPV 7.5 fl 12/15/18 21:00 Neutrophils % 52.8 % (40.0-80.0) 12/15/18 21:00 Lymphocytes % 30.7 % (20.0-50.0) 12/15/18 21:00 Monocytes % 12.0 % (2.0-10.0) H 12/15/18 21:00 Eosinophils % 3.7 % (0.0-5.0) 12/15/18 21:00 Basophils % 0.8 % (0.0-2.0) 12/15/18 21:00 Sodium 137 mEq/L (136-145) 12/15/18 21:00 Potassium 3.8 mEq/L (3.5-5.1) 12/15/18 21:00 Chloride 101 mEq/L (98-107) 12/15/18 21:00 Carbon Dioxide 25.6 mEq/L (21.0-31.0) 12/15/18 21:00 Anion Gap 14.2 (7.0-16.0) 12/15/18 21:00 BUN 17 mg/dL (7-25) 12/15/18 21:00 Creatinine 0.9 mg/dL (0.7-1.3) 12/15/18 21:00 Est GFR ( Amer) TNP 12/15/18 21:00 Est GFR (Non-Af Amer) TNP 12/15/18 21:00 BUN/Creatinine Ratio 18.9 12/15/18 21:00 Glucose 187 mg/dL (70-105) H 12/15/18 21:00 Calcium 9.5 mg/dL (8.6-10.3) 12/15/18 21:00 Total Bilirubin 0.5 mg/dL (0.3-1.0) 12/15/18 21:00 AST 10 U/L (13-39) L 12/15/18 21:00 ALT 10 U/L (7-52) 12/15/18 21:00 Alkaline Phosphatase 61 U/L (34-104) 12/15/18 21:00 Troponin I 0.01 ng/mL (0.01-0.05) 12/15/18 21:00 Total Protein 6.3 gm/dL (6.0-8.3) 12/15/18 21:00 Albumin 3.7 gm/dL (4.2-5.5) L 12/15/18 21:00 Globulin 2.6 gm/dL 12/15/18 21:00 Albumin/Globulin Ratio 1.4 (1.0-1.8) 12/15/18 21:00 Triglycerides 215 mg/dL (<150) H 12/15/18 21:00 Cholesterol 140 mg/dL (<200) 12/15/18 21:00 LDL Cholesterol Direct 92 mg/dL (75-193) 12/15/18 21:00 HDL Cholesterol 32 mg/dL (23-92) 12/15/18 21:00 TSH 3.45 uIU/ml (0.34-5.60) 12/15/18 21:00 RPR NONREACTIVE (NONREACTIVE) 12/15/18 21:00 - Physical Exam Vitals and I&O: Vital Signs Temp 98.8 F 12/28/18 05:31 Pulse 71 12/28/18 09:20 Resp 19 12/28/18 05:31 BP 138/67 07/31/19 09:20 Pulse Ox 95 12/28/18 05:31 Intake & Output 12/27/18 12/28/18 12/28/18 18:59 06:59 18:59 Intake Total 900 180 Balance 900 180 Intake: Oral 900 180 Other: # Voids 3 2 # Bowel Movements 1 0 Active Medications: Current Medications Acetaminophen (Tylenol) 650 mg PO Q6HR PRN PRN Reason: Pain or Fever >101 Stop: 02/14/19 12:23 Last Admin: 12/19/18 20:15 Dose: 650 mg Aspirin (Aspirin Chewable) 81 mg PO DAILY [facility] Stop: 02/15/19 08:59 Last Admin: 12/28/18 09:19 Dose: 81 mg Atorvastatin Calcium (Lipitor) 10 mg PO HS [facility]; Protocol Stop: 02/14/19 20:59 Last Admin: 12/27/18 20:27 Dose: 10 mg Bisacodyl (Dulcolax 10 Mg Supp) 10 mg RC DAILY PRN PRN Reason: Constipation Stop: 02/14/19 12:23 Dextrose (Glutose 40%) 18.75 gm PO PRN PRN PRN Reason: BS Below 70 & tolerate po Stop: 02/14/19 12:24 Diltiazem HCl (Cardizem Cd) 240 mg PO DAILY [facility] Stop: 02/15/19 08:59 Last Admin: 12/28/18 09:19 Dose: 240 mg Furosemide (Lasix) 20 mg PO BID [facility] Stop: 02/14/19 16:59 Last Admin: 12/28/18 09:19 Dose: 20 mg Glucagon (Glucagen) 1 mg IM PRN PRN PRN Reason: BS Below 70 & not tolerate po Stop: 02/14/19 12:24 Insulin Human Lispro (Humalog Insulin Sliding Scale) 0 units SUBQ ACHS MARIANA; Protocol Stop: 02/14/19 16:29 Last Admin: 12/28/18 11:21 Dose: Not Given Lorazepam (Ativan) 0.5 mg PO Q4H PRN; Protocol PRN Reason: Anxiety Stop: 02/14/19 00:10 Last Admin: 12/26/18 17:00 Dose: 0.5 mg Losartan Potassium (Cozaar) 25 mg PO DAILY [facility] Stop: 02/15/19 08:59 Last Admin: 12/28/18 09:20 Dose: 25 mg Magnesium Hydroxide (Milk Of Magnesia) 30 ml PO DAILY PRN PRN Reason: Constipation Stop: 02/14/19 12:23 Metformin HCl (Glucophage) 500 mg PO BIDWM [facility] Stop: 02/14/19 17:59 Last Admin: 12/28/18 09:19 Dose: 500 mg Multivitamins/Vitamin C (Theragran) 1 tab PO DAILY [facility] Stop: 02/15/19 08:59 Last Admin: 12/28/18 09:20 Dose: 1 tab Potassium Chloride (Klor-Con) 10 meq PO DAILY [facility] Stop: 02/15/19 08:59 Last Admin: 12/28/18 09:20 Dose: 10 meq Quetiapine Fumarate (Seroquel) 37.5 mg PO HS [facility]; Protocol Stop: 02/22/19 20:59 Last Admin: 12/27/18 20:27 Dose: 37.5 mg Rivastigmine Tartrate (Exelon) 1.5 mg PO BIDWM [facility] Stop: 02/14/19 17:59 Last Admin: 12/28/18 09:19 Dose: 1.5 mg Tamsulosin HCl (Flomax) 0.4 mg PO DAILY [facility] Stop: 02/15/19 08:59 Last Admin: 12/28/18 09:20 Dose: 0.4 mg General: alert, obese HEENT: NC/AT, PERRLA Neck: Supple Lungs: CTAB Cardiovascular: RRR, Normal S1, Normal S2 Abdomen: soft, non-tender, non-distended, positive bowel sound Extremities: excoriation, contracture Neurological: disorganized Internal Medicine Assmt/Plan - Assessment Assessment: ASSESSMENT AND PLAN: Anemia, diabetes, hypertension, gastroesophageal reflux disease, benign prostatic hypertrophy, paroxysmal atrial fibrillation, Alzheimer dementia, and hyperglycemia. - Plan Plan: PLAN: Continue the patient on ADA diet and insulin sliding scale. Continue metformin. Continue current antihypertensive medication. We will place him on fall precautions. Continue with current care. We will continue to follow with the patient with Dr. Ifeanyi to. Nutritional Asmnt/Malnutr-PDOC - Dietary Evaluation Malnutrition Findings (Please click <Entered> for more info): Nutritional Asmnt/Malnutrition Start: 12/16/18 08: 21 Text: Status: Complete Freq: Protocol: Document 12/17/18 10:01 ELLE (Rec: 12/17/18 10:22 ELLE ROSI- [email or web address]) Nutritional Asmnt/Malnutrition Patient General Information Nutritional Screening Moderate Risk Diagnosis Psychosis Pertinent Medical Hx/Surgical Hx HTN, Diabetes, GERD, BPH, paroxysomal atrial fibrillation, Alzheimer dementia, high cholesterol Subjective Information Patient was admitted from nursing facility for agitation . Patient with 1-2+ edema, on lasix. Per nursing notes, patient easily agitated, aggressive and unpredictable, sometimes striking, hitting and spitting. Patient was seen in Radha chair in dining room at time of visit. Per FACILITY MAINTENANCE MANAGER, he [id number]% of meals without difficulty. Current Diet Order/ Nutrition Support mechanical soft, 45gm CCHO, nectar thick liquids, chopped, no added sodium Patient / S.O Not Indicated Pertinent Medications Lipitor, dulcolax, D50W, Lasix , glucagon, humalog, cozaar, MOM, Metformin, Theragran, klor-con Pertinent Labs (12/15) Glucose 187, Albumin 3. 7, TAG 215 Nutritional Hx/Data Height 1.7 m Height (Calculated Centimeters) 170.2 Current Weight (lbs) 83.915 kg Weight (Calculated Kilograms) 83.9 Weight (Calculated Grams) 24485.6 [place] Body Weight 148 % [place] Body Weight 125 Body Mass Index (BMI) 29.0 Recent Weight Change No Weight Status Overweight GI Symptoms GI Symptoms None Last BM 12/16 x 1 Difficult in: None Food Allergies No Cultural/Ethnic/Islam Belief none indicated Usual diet at home unknown Skin Integrity/Comment: Moses 16, bruises, intact Current %PO Good (75-100%) Estimated Nutritional Goals BEE in Kcals: Using Current wt Calories/Kcals/Kg 84kg 22-27 kcal/kg Kcals Calculated ~1977-1575 kcal/day Protein: Using Current wt Protein g/k.8-1 gm/kg Protein Calculated ~65-85 gm/day Fluid: ml ~1942-4639 ml/day Nutritional Problem No current Nutrition Prob Problem No nutrition diagnosis at this time Intervention/Recommendation Comments 1. Modify diet to 60 gm CCHO to better meet nutrient needs. Continue No added sodium due to edema. Continue mechanical soft, chopped diet with nectar thick liquids as appropriate. Expected Outcomes/Goals Expected Outcomes/Goals Adequate nutrition to meet >75 % estimated needs, improved labs, skin remains intact, weight maintenance or trend toward ideal body weight. F/U LR 12/24
--- NOTE | 2018-12-28 21:09 | Progress Notes ---
DATE: 12/28/2018 PSYCHOLOGY PROGRESS NOTE SUBJECTIVE: The patient is seen in his room. Case is discussed with staff. The patient is presenting as somnolent, but verbally arousable. The patient states that he continues to feel a little bit anxious. Staff reports the patient has had some anger outbursts; however, these are lessening. OBJECTIVE: Mood is stabilizing. Affect is constricted. Thought process shows to be concrete, but more goal oriented. The patient denied any hallucinations or delusions. There are still some impulse control issues; however, the patient has been compliant with his medication and following through with staff direction for the most part. ASSESSMENT AND PLAN: The patient still remains somewhat suspicious, but is most likely approaching baseline. The patient continues to demonstrate poor insight into his illness. We provided positive reinforcement for the patient to follow through with staff direction at his facility and to stay compliant with his care and treatment. We provided coping strategies for phase of life issues as well as for chronic severe mental illness. We encouraged the patient to verbalize his concerns versus acting out. No followup is indicated. The staff reports the patient is scheduled to discharge today. JOB# [id number] JASPREET
== END 2018-12-28 14:00 | DRG 885 ==
LOC: ER 19:04 → GERO 22:30
PROVIDERS: ADMIT Psychiatry & Neurology Psychiatry; ATTEND Psychiatry & Neurology Psychiatry
DX: F29 Unspecified psychosis not due to a substance or known physiological condition (principal); E11.65 Type 2 diabetes mellitus with hyperglycemia; F02.81 Dementia in other diseases classified elsewhere, unspecified severity, with behavioral disturbance; G30.9 Alzheimer's disease, unspecified; D64.9 Anemia, unspecified; I10 Essential (primary) hypertension; K21.9 Gastro-esophageal reflux disease without esophagitis; N40.0 Benign prostatic hyperplasia without lower urinary tract symptoms; I48.0 Paroxysmal atrial fibrillation; Z88.1 Allergy status to other antibiotic agents; I25.2 Old myocardial infarction
CPT/HCPCS: 36415-UA; 80053-TC; 80061-TC; 83036-90; 84443-TC; 84484-TC; 85025-TC; 86592-TC; 90899; 93005; G0410; Z7610